=== PATIENT | male | born 1945 | race Caucasian/White ===

== ENCOUNTER 2018-01-21 07:34 | Day surgery (SDC) | payer MEDICARE, OTHER ==
--- NOTE | 2018-01-19 14:32 | RAD REPORT ---
EXAM DESCRIPTION: RAD - Chest Pa And Lat (2 Views) - 01/19/2018 2:14 pm CLINICAL HISTORY: Preop chest, pending vascular surgical procedure, history of fibrosis COMPARISON: Portable exam August 2015, two view examination March 2010 TECHNIQUE: PA and lateral views of the chest were obtained. FINDINGS: The lungs are normal volume. Patient has significant old left-sided rib trauma with tentin g of the left hemidiaphragm. The chronic pleural and parenchymal scarring changes along the lateral i nferior left lung field are stable. Left upper lung field focal density is calcification along the an terior left first rib. Prominence of the right side interstitial markings has not changed. No acute failure, infiltrate or m ass. Trachea is midline. Heart size is normal and central vasculature is within normal limits. No p leural effusion or pneumothorax seen. No acute bony finding noted. No aortic abnormality. IMPRESSION: No acute cardiopulmonary process. Chronic parenchymal and pleural changes and old rib trauma on the left are stable from comparison shraddha ging.
[2018-01-19 14:50] LABS: Absolute Lymphocytes (CBC) 0.8 K/uL (0.7-4.9); Absolute Monocytes 0.7 K/uL (0.1-1.3); Absolute Neutrophil 5.1 K/uL (1.8-8.0); Basophils % 0.2 % (0-1.3); Hematocrit 39.1 % (39.6-49.0); MCH 31.9 pg (27.0-35.0); MCV 95.9 fL (80-100); MPV 9.4 fL (7.6-11.3); Monocytes % 10.6 % (3.3-12.3); RBC Red Blood Cell Count 4.08 M/uL (4.33-5.43)
[2018-01-19 15:00] LABS: Protime INR 1.28
[2018-01-19 15:17] LABS: Potassium 4.3 mmol/L (3.5-5.1)
--- NOTE | 2018-01-19 17:57 | EKG ---
Test Date: 2018-01-19 Test Time: 13:50:05 [employer]: LINETTE MEASUREMENT RESULTS: Intervals: Rate: 89 OR: QRSD: 90 QT: 398 QTc: 484 [place]: P: OR: QRS: 10 T: 24 INTERPRETIVE STATEMENTS: Atrial fibrillation Prolonged QT Abnormal ECG Compared to ECG 08/28/2015 06:00:03 Prolonged QT interval now present Sinus rhythm no longer present Electronically Signed On 01-19-18 17:56:39 CDT by Pieter Carney
[2018-01-21] MEDS ORDERED: NA CHLORIDE 0.9% 500 ML ONE (07:43)
[2018-01-21] MEDS ORDERED: LIDOCAINE 1% MPF 2 ML AMPULE ONE (08:27)
[2018-01-21] MEDS ORDERED: HEPA 1000U/500MLS 2,000 UNIT/1,000 ML BAG IV ONE (08:27)
[2018-01-21] MEDS ORDERED: FENTANYL CITR 100 MCG/2 ML ONE (08:28)
[2018-01-21] MEDS ORDERED: MIDAZOLAM HCL 2 MG/2 ML INJ ONE (08:28)
--- NOTE | 2018-01-21 11:31 | OP ---
Date of Procedure: 01/21/2018 Surgeon: Pieter Carney MD Indications: Mr. Fernandez is a 72-year-old with documented peripheral arterial disease, abnormal yvonne rial Doppler, admitted as an outpatient for abdominal angiogram with runoff. Description Of Procedure: He was prepped and draped in the routine sterile fashion given 2 mg of Yordy sed for IV sedation. We attempted to do a complete angiogram from of the aorta with runoff. The pat ient had a right common femoral artery was cannulated with a 6-Czech sheath successfully. 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 A sheath was used, 6-Czech in th e left groin and that showed the same thing with complete occlusion of left common femoral artery by angiography. The patient tolerated the procedure well. There were no complication. Blood loss was 10 cc. Total conscious sedation was 30 minutes. Additional Surgeon: Lizy Tong. Final Diagnosis: Severe peripheral arterial disease. The patient will probably end up having an abdominal angiogram with runoff using an MRA or a wrist ap proach. I will evaluate his coronary anatomy first. He is on Xarelto and I told him to resume this starting tomorrow. I will make arrangements for the MRA of his abdominal aorta distally and lower ex tremity distally and then Lexiscan and then decide on further treatment therapy afterwards. JESSA/DAVID Voice ID: [id number] Report ID: [id number]
[2018-01-21 14:55] VITALS: O2SAT 97
[2018-01-21 15:42] VITALS: BP 168/79; TEMP 97.1
== END 2018-01-21 16:00 | disposition home or self-care (01) ==
LOC: CCL 07:34
PROC: B41GYZZ Fluoroscopy of Left Lower Extremity Arteries using Other Contrast (ICD-10-PCS; principal; 2018-01-21)
PROC: B41FYZZ Fluoroscopy of Right Lower Extremity Arteries using Other Contrast (ICD-10-PCS; 2018-01-21)
DX: I70.213 Atherosclerosis of native arteries of extremities with intermittent claudication, bilateral legs (principal); I48.0 Paroxysmal atrial fibrillation; E78.6 Lipoprotein deficiency; I10 Essential (primary) hypertension; R60.9 Edema, unspecified; G62.9 Polyneuropathy, unspecified; R01.1 Cardiac murmur, unspecified; I70.92 Chronic total occlusion of artery of the extremities
CPT/HCPCS: 36140; 36415; 71046; 80048; 82962 ×3; 85025; 85610; 85730; 93005; C1893; J2001; J2250; J3010

== ENCOUNTER 2019-07-26 11:57 | Inpatient (IN) | payer MEDICARE ==
[2019-07-26] MEDS ORDERED: NA CHLORIDE 0.9% 1,000 ML ONE (12:22)
--- NOTE | 2019-07-26 12:37 | RAD REPORT ---
EXAM DESCRIPTION: RAD - Chest Single View - 07/26/2019 12:29 pm CLINICAL HISTORY: COUGH Chest pain. COMPARISON: Chest Pa And Lat (2 Views) dated 01/19/2018; CHEST SINGLE VIEW dated 08/28/2015; CHEST SING LE VIEW dated 07/12/2014; CHEST PA AND LAT 2 VIEW dated 04/07/2014 FINDINGS: Portable technique limits examination quality. Mild bilateral pulmonary opacities are present likely representing pulmonary edema or pneumonia. The heart is mildly enlarged in size. No displaced fractures.
--- NOTE | 2019-07-26 13:51 | RAD REPORT ---
EXAM DESCRIPTION: CT - Head Brain Wo Cont - 07/26/2019 1:44 pm CLINICAL HISTORY: Dizziness;Weakness Headache, drowsiness COMPARISON: No comparisons TECHNIQUE: All CT scans are performed using dose optimization technique as appropriate and may inclu de automated exposure control or mA/KV adjustment according to patient size. FINDINGS: No intracranial hemorrhage, hydrocephalus or extra-axial fluid collection.Moderate general ized brain atrophy.No areas of brain edema or evidence of midline shift. Moderate mucus is seen in the posterior left ethmoid air cells. The paranasal sinuses and mastoids ar e otherwise clear. The calvarium is intact. Vertebral arteries are calcified. IMPRESSION: No acute intracranial abnormality. Moderate brain atrophy.
[2019-07-26 14:08] LABS: Urine Blood 1+ (NEG); Urine Glucose NEGATIVE (NEG); Urine Protein NEGATIVE (NEG); Urine Specific Gravity 1.015 (1.005-1.030); Urine pH 6.5 (5.0-7.0)
[2019-07-26 14:13] LABS: Absolute Lymphocytes (CBC) 0.6 K/uL (0.7-4.9); Basophils % 0.5 % (0-1.3); Hematocrit 35.2 % (39.6-49.0); Lymphocytes % 5.6 % (15.3-44.8); MPV 9.2 fL (7.6-11.3)
[2019-07-26] MEDS ORDERED: METOPROLOL TAR 50 MG TAB ONE (14:18)
[2019-07-26] MEDS ORDERED: IPRATROPIUM BROM 0.5MG/2.5ML ONE (14:18)
[2019-07-26] MEDS ORDERED: LEVALBUTEROL 1.25 MG/3 ML NEB ONE (14:19)
[2019-07-26] MEDS ORDERED: METOPROLOL TARTRATE 5 MG/5 ML INJ IV ONE (14:19)
[2019-07-26] MEDS ORDERED: PIPER/TAZO/NS 3.375gm 3.375 GM/100 ML BAG ONE (14:19)
[2019-07-26 14:21] LABS: Protime INR 1.25
[2019-07-26 14:44] LABS: ALT/SGPT 67 U/L (12-78); AST/SGOT 96 U/L (15-37); Albumin 2.3 g/dL (3.4-5.0); Alkaline Phosphatase 186 U/L (45-117); BUN Blood Urea Nitrogen 18 mg/dL (7-18); Bicarbonate 29 mmol/L (21-32); Bilirubin Direct 0.3 mg/dL (0-0.2); Bilirubin Total 0.8 mg/dL (0.2-1.0); Glucose Level 180 mg/dL (74-106); Lipase 62 U/L (73-393); Magnesium 2.2 mg/dL (1.8-2.4); NT PRO-BNP 1699 pg/mL (<450); Potassium 3.7 mmol/L (3.5-5.1); Protein, Total 7.9 g/dL (6.4-8.2); Sodium Level 136 mmol/L (136-145); Troponin (Emerg Dept Use Only) < 0.02 ng/mL (0.0-0.045)
[2019-07-26] MEDS ORDERED: FUROSEMIDE 40 MG/4 ML VIAL ONE (15:02)
--- NOTE | 2019-07-26 15:03 | EDPHYS ---
Physician Documentation [facility] Name: Angus Patrick Age: 73 yrs Sex: Male : 1945 Arrival Date: 07/26/2019 Time: 11:58 Bed 18 Private MD: ED Physician Elver Morrell HPI: 07/26 13:30 This 73 yrs old Male presents to ER via EMS with complaints of General marin Weakness. 13:30 The patient has shortness of breath at rest, with light activity. marin 13:32 Onset: The symptoms/episode began/occurred 4 day(s) ago. Duration: The symptoms are marin continuous, and are steadily getting worse. The patient's shortness of breath has no apparent modifying factors. The patient or guardian reports cough, difficulty breathing, flu symptoms, low-grade fever. Modifying factors: The symptoms are alleviated by nothing. the symptoms are aggravated by nothing. weak, pain all over. Associated signs and symptoms: The patient has no apparent associated signs or symptoms. Severity of symptoms: At their worst the symptoms were moderate in the emergency department the symptoms are unchanged. Historical: - Allergies: 12:13 Morphine; sv - Home Meds: 15:15 oxybutynin chloride 15 mg Oral tr24 1 tab once daily [Active]; simvastatin 40 mg Oral iw tab 1 tab once daily [Active]; methenamine hippurate 1 gram oral tab 1 tab 2 times per day [Active]; Xarelto 15 mg oral tab daily [Active]; carvedilol 6.25 mg oral tab 1 tab 2 times per day [Active]; furosemide 40 mg Oral tab 1 tab once daily [Active]; hydrocodone-acetaminophen 10-325 mg Oral tab 1 tab every 6 hours [Active]; alprazolam 0.25 mg Oral tab twice a day [Active]; - PMHx: 15:17 UTI; colon cancer; iw 15:18 Hypertension; Hyperlipidemia; iw 19:18 Atrial Fib; sv - PSHx: 12:13 Colostomy; sv - Immunization history:: Adult Immunizations up to date. - Coronavirus screen:: The patient has NOT traveled to [place], [place], or [place] in the past 14 days. Proceed with normal triage process as indicated. - Family history:: not pertinent. - Social history:: Smoking status: Patient denies any tobacco usage or history of. - Ebola Screening: : Patient negative for fever greater than or equal to 101.5 degrees Fahrenheit, and additional compatible Ebola Virus Disease symptoms Patient denies exposure to infectious person Patient denies travel to an Ebola-affected area in the 21 days before illness onset No symptoms or risks identified at this time. ROS: 13:34 Constitutional: Negative for fever, chills, and weight loss, Eyes: Negative for injury, marin pain, redness, and discharge, ENT: Negative for injury, pain, and discharge, Neck: Negative for injury, pain, and swelling, Abdomen/GI: Negative for abdominal pain, nausea, vomiting, diarrhea, and constipation, Back: Negative for injury and pain, : Negative for injury, bleeding, discharge, and swelling, Skin: Negative for injury, rash, and discoloration, Neuro: Negative for headache, weakness, numbness, tingling, and seizure, Psych: Negative for depression, anxiety, suicide ideation, homicidal ideation, and hallucinations, Allergy/Immunology: Negative for hives, rash, and allergies, Endocrine: Negative for neck swelling, polydipsia, polyuria, polyphagia, and marked weight changes, Hematologic/Lymphatic: Negative for swollen nodes, abnormal bleeding, and unusual bruising. 13:34 Cardiovascular: Positive for chest pain, palpitations. 13:34 Respiratory: Positive for cough, dyspnea on exertion, shortness of breath, wheezing, expiratory. 13:34 MS/extremity: Positive for swelling, of the right leg and left leg. Exam: 13:34 Constitutional: This is a well developed, well nourished patient who is awake, alert, marin and in no acute distress. Head/Face: Normocephalic, atraumatic. Eyes: Pupils equal round and reactive to light, extra-ocular motions intact. Lids and lashes normal. Conjunctiva and sclera are non-icteric and not injected. Cornea within normal limits. Periorbital areas with no swelling, redness, or edema. ENT: Nares patent. No nasal discharge, no septal abnormalities noted. Tympanic membranes are normal and external auditory canals are clear. Oropharynx with no redness, swelling, or masses, exudates, or evidence of obstruction, uvula midline. Mucous membranes moist. Neck: Trachea midline, no thyromegaly or masses palpated, and no cervical lymphadenopathy. Supple, full range of motion without nuchal rigidity, or vertebral point tenderness. No Meningismus. Chest/axilla: Normal chest wall appearance and motion. Nontender with no deformity. No lesions are appreciated. Abdomen/GI: Soft, non-tender, with normal bowel sounds. No distension or tympany. No guarding or rebound. No evidence of tenderness throughout. Back: No spinal tenderness. No costovertebral tenderness. Full range of motion. Male : Normal genitalia with no discharge or lesions. Skin: Warm, dry with normal turgor. Normal color with no rashes, no lesions, and no evidence of cellulitis. Neuro: Awake and alert, GCS 15, oriented to person, place, time, and situation. Cranial nerves II-XII grossly intact. Motor strength 5/5 in all extremities. Sensory grossly intact. Cerebellar exam normal. Normal gait. Psych: Awake, alert, with orientation to person, place and time. Behavior, mood, and affect are within normal limits. 13:34 Cardiovascular: Rate: tachycardic, Rhythm: irregularly irregular, Pulses: Pulses are 4+ in bilateral radial, brachial, femoral, popliteal, posterior tibial and and dorsalis pedis arteries.. Heart sounds: normal, Edema: 3+ edema to level of left midcalf and right midcalf, JVD: is not appreciated. 13:34 Respiratory: the patient does not display signs of respiratory distress, Respirations: normal, Breath sounds: decreased breath sounds, rhonchi, are not appreciated, stridor, is not appreciated. Vital Signs: 12:12 BP 182 / 102; Pulse 125; Resp 15; Pulse Ox 98% on R/A; sv 12:30 BP 162 / 82; Pulse 120; Resp 17; Temp 97.7(O); Pulse Ox 97% ; sv 15:05 BP 96 / 40; Pulse 93; Resp 14; Pulse Ox 99% ; sv 15:30 BP 116 / 71; Pulse 93; Resp 14; Pulse Ox 99% ; sv 16:31 BP 132 / 75; Pulse 87; Resp 20; Pulse Ox 98% on R/A; sv MDM: 12:05 Patient medically screened. [facility] 13:36 Data reviewed: vital signs, nurses notes, lab test result(s), EKG, radiologic studies, [facility] CT scan, plain films. 07/26 12:07 Order name: Basic Metabolic Panel; Complete Time: 14:58 [facility] 07/26 12:07 Order name: CBC with Diff; Complete Time: 14:58 [facility] 07/26 12:07 Order name: LFT's; Complete Time: 14:58 [facility] 07/26 12:07 Order name: Magnesium; Complete Time: 14:58 [facility] 07/26 12:07 Order name: NT PRO-BNP; Complete Time: 14:58 [facility] 07/26 12:07 Order name: PT-INR; Complete Time: 14:58 [facility] 07/26 12:07 Order name: Troponin (emerg Dept Use Only); Complete Time: 14:58 [facility] 07/26 12:07 Order name: XRAY Chest (1 view); Complete Time: 14:58 [facility] 07/26 12:07 Order name: Lipase; Complete Time: 14:58 [facility] 07/26 12:07 Order name: Blood Culture Adult (2) 07/26 12:07 Order name: Flu; Complete Time: 14:58 [facility] 07/26 12:07 Order name: Urine Culture 07/26 13:20 Order name: Urine Dipstick--Ancillary (enter results); Complete Time: 14:58 07/26 13:25 Order name: TSH 07/26 12:07 Order name: EKG; Complete Time: 12:08 [facility] 07/26 12:07 Order name: Cardiac monitoring; Complete Time: 13:29 [facility] 07/26 12:07 Order name: IV Saline Lock; Complete Time: 13:29 [facility] 07/26 13:25 Order name: CT Head Brain wo Cont; Complete Time: 14:58 [facility] 07/26 12:07 Order name: Labs collected and sent; Complete Time: 13:29 [facility] 07/26 12:07 Order name: O2 Per Protocol; Complete Time: 13:29 [facility] 07/26 12:07 Order name: O2 Sat Monitoring; Complete Time: 13:29 [facility] 07/26 12:07 Order name: Urine Dipstick-Ancillary (obtain specimen); Complete Time: 13:28 [facility] 07/26 13:44 Order name: Labs - recollect needed: recollect everything; Complete Time: 14:07 07/26 15:34 Order name: Randhawa; Complete Time: 16:49 [facility] Administered Medications: 13:20 Drug: NS 0.9% 1000 ml Route: IV; Rate: 1 bolus; Site: left antecubital; sv 14:30 Follow up: Response: No adverse reaction; IV Status: Completed infusion; IV Intake: sv 1000ml 13:31 CANCELLED (Duplicate Order): Rocephin 1 grams IV at per protocol once; Given slow IV marin push per pharmacy instructions 15:14 Not Given (Duplicate Order): Lasix 40 mg IVP once marin 15:15 Not Given (Duplicate Order): Lopressor 2.5 mg IVP once; Hold for SBP <100 or HR <60. marin 15:15 Not Given (Duplicate Order): Lopressor 2.5 mg IVP once; Hold for SBP <100 or HR <60. marin 15:16 Not Given (Duplicate Order): Lopressor (metoprolol TARTRATE) 50 mg PO once marin 15:24 Drug: Zosyn 3.375 grams Route: IVPB; Infused Over: 60 mins; Site: right antecubital; sv 16:30 Follow up: Response: No adverse reaction; IV Status: Completed infusion; IV Intake: sv 100ml 15:24 Drug: AtroVENT Aerosol 0.5 mg Route: Inhalation; sv 15:24 Drug: Digoxin 0.5 mg Route: IVP; Site: right antecubital; sv 16:00 Follow up: Response: No adverse reaction sv 15:25 Drug: Xopenex 1.25 mg Route: Inhalation; sv 17:50 Not Given (Physician Discretion): Coreg 6.25 mg PO once; administer with food sv Disposition: 07/26/19 15:02 Hospitalization ordered by Casey Uribe for Inpatient Admission. Preliminary diagnosis are Malaise and fatigue, Dyspnea, Atrial fibrillation and flutter - with rvr, Pneumonia due to other specified bacteria, Unspecified combined systolic (congestive) and diastolic (congestive) heart failure, Obesity, unspecified, Retention of urine. - Bed requested for Telemetry/MedSurg (Inpatient). - Status is Inpatient Admission. sv - Condition is Fair. - Problem is new. - Symptoms have improved. UTI on Admission? No Signatures: Dispatcher [employer] EDMS Yamileth Araya Stephanie, RN RN sv Anderson, Corey, MD MD cha Williams, Irene, RN RN iw Corrections: (The following items were deleted from the chart) 13:31 13:26 Rocephin 1 grams IV at per protocol once; Given slow IV push per pharmacy marin instructions ordered. [facility] 15:34 15:02 Hospitalization Ordered by Casey Uribe DO for Inpatient Admission. Preliminary marin diagnosis is Malaise and fatigue; Dyspnea; Atrial fibrillation and flutter - with rvr; Pneumonia due to other specified bacteria; Unspecified combined systolic (congestive) and diastolic (congestive) heart failure; Obesity, unspecified. Bed requested for Telemetry/MedSurg (Inpatient). Status is Inpatient Admission. Condition is Fair. Problem is new. Symptoms have improved. UTI on Admission? No. marin 16:26 15:34 07/26/2019 15:02 Hospitalization Ordered by Casey Uribe DO for Inpatient bd Admission. Preliminary diagnosis is Malaise and fatigue; Dyspnea; Atrial fibrillation and flutter - with rvr; Pneumonia due to other specified bacteria; Unspecified combined systolic (congestive) and diastolic (congestive) heart failure; Obesity, unspecified; Retention of urine. Bed requested for Telemetry/MedSurg (Inpatient). Status is Inpatient Admission. Condition is Fair. Problem is new. Symptoms have improved. UTI on Admission? No. marin 17:51 16:26 07/26/2019 15:02 Hospitalization Ordered by Casey Uribe DO for Inpatient sv Admission. Preliminary diagnosis is Malaise and fatigue; Dyspnea; Atrial fibrillation and flutter - with rvr; Pneumonia due to other specified bacteria; Unspecified combined systolic (congestive) and diastolic (congestive) heart failure; Obesity, unspecified; Retention of urine. Bed requested for Telemetry/MedSurg (Inpatient). Status is Inpatient Admission. Condition is Fair. Problem is new. Symptoms have improved. UTI on Admission? No. bd
--- NOTE | 2019-07-26 15:03 | ER ---
Nurse's Notes [facility] Name: Angus Patrick Age: 73 yrs Sex: Male : 1945 Arrival Date: 07/26/2019 Time: 11:58 Bed 18 Private MD: Diagnosis: Malaise and fatigue;Dyspnea;Atrial fibrillation and flutter-with rvr;Pneumonia due to other specified bacteria;Unspecified combined systolic (congestive) and diastolic (congestive) heart failure;Obesity, unspecified;Retention of urine Presentation: 07/26 11:51 Presenting complaint: EMS states: generalized weakness has been going on for about 4 sv days, today he was unable to get out of his wheelchair. On EMS arrival pt was noted to be sitting in his wheelchair. EKG-Afib (unknown hx). Transition of care: patient was not received from another setting of care. Onset of symptoms was July 22, 2019. 11:51 Method Of Arrival: EMS: [facility] sv 11:55 Risk Assessment: Do you want to hurt yourself or someone else? Patient reports no sv desire to harm self or others. Initial Sepsis Screen: Does the patient meet any 2 criteria? HR > 90 bpm. No. Patient's initial sepsis screen is negative. Does the patient have a suspected source of infection? No. Patient's initial sepsis screen is negative. Care prior to arrival: None. 12:12 Acuity: BARB 2 sv Triage Assessment: 11:55 General: Appears in no apparent distress. uncomfortable, well developed, Behavior is sv calm, cooperative, appropriate for age. Pain: Complains of pain in "everywhere" Pain currently is 10 out of 10 on a pain scale. Is chronic. Neuro: Level of Consciousness is awake, alert, obeys commands, Oriented to person, place, time, situation, Moves all extremities. Neuro: Reports weakness. Cardiovascular: Patient's skin is warm and dry. Pulses are palpable in right radial artery and left radial artery. Respiratory: Airway is patent Respiratory effort is even, unlabored, Respiratory pattern is regular, symmetrical. Derm: Skin is fragile, is thin, with poor turgor Skin is dry, scaly Skin is pale. Musculoskeletal: Range of motion: intact in all extremities, Swelling present in right leg and left leg. Historical: - Allergies: 12:13 Morphine; sv - Home Meds: 15:15 oxybutynin chloride 15 mg Oral tr24 1 tab once daily [Active]; simvastatin 40 mg Oral iw tab 1 tab once daily [Active]; methenamine hippurate 1 gram oral tab 1 tab 2 times per day [Active]; Xarelto 15 mg oral tab daily [Active]; carvedilol 6.25 mg oral tab 1 tab 2 times per day [Active]; furosemide 40 mg Oral tab 1 tab once daily [Active]; hydrocodone-acetaminophen 10-325 mg Oral tab 1 tab every 6 hours [Active]; alprazolam 0.25 mg Oral tab twice a day [Active]; - PMHx: 15:17 UTI; colon cancer; iw 15:18 Hypertension; Hyperlipidemia; iw 19:18 Atrial Fib; sv - PSHx: 12:13 Colostomy; sv - Immunization history:: Adult Immunizations up to date. - Coronavirus screen:: The patient has NOT traveled to [place], [place], or [place] in the past 14 days. Proceed with normal triage process as indicated. - Family history:: not pertinent. - Social history:: Smoking status: Patient denies any tobacco usage or history of. - Ebola Screening: : Patient negative for fever greater than or equal to 101.5 degrees Fahrenheit, and additional compatible Ebola Virus Disease symptoms Patient denies exposure to infectious person Patient denies travel to an Ebola-affected area in the 21 days before illness onset No symptoms or risks identified at this time. Screenin:30 Abuse screen: Denies threats or abuse. Denies injuries from another. Nutritional sv screening: No deficits noted. Tuberculosis screening: No symptoms or risk factors identified. Fall Risk No fall in past 12 months (0 pts). No secondary diagnosis (0 pts). IV access (20 points). Ambulatory Aid- None/Bed Rest/Nurse Assist (0 pts). Gait- Weak (10 pts.). Mental Status- Overestimates/Forgets Limitations (15 pts.). Total [place] Fall Scale indicates High Risk Score (45 or more points). Fall prevention measures have been instituted. Side Rails Up X 2 Placed Close to Nursing Station Frequent Obs/Assessments Occuring As available patient and family educated on Fall Prevention Program and Strategies. Assessment: 12:30 Cardiovascular: Rhythm is atrial fibrillation. Derm: Decubitus located on sacrum sv posterior right calf approximately pt has multiple decubitus, 3 large ones and multiple small ones is unstageable. is draining small amount purulent. 12:30 Reassessment: Patient appears in no apparent distress at this time. Patient and/or sv family updated on plan of care and expected duration. Pain level reassessed. Patient is alert, oriented x 3, equal unlabored respirations, skin warm/dry/pink. 14:00 Reassessment: Patient appears in no apparent distress at this time. Patient and/or sv family updated on plan of care and expected duration. Pain level reassessed. Patient is alert, oriented x 3, equal unlabored respirations, skin warm/dry/pink. 15:24 Reassessment: Patient appears in no apparent distress at this time. Patient and/or sv family updated on plan of care and expected duration. Pain level reassessed. Patient is alert, oriented x 3, equal unlabored respirations, skin warm/dry/pink. 15:41 Reassessment: Dr rUibe at the bedside. sv 17:00 Reassessment: Patient appears in no apparent distress at this time. Patient and/or sv family updated on plan of care and expected duration. Pain level reassessed. Patient is alert, oriented x 3, equal unlabored respirations, skin warm/dry/pink. Vital Signs: 12:12 BP 182 / 102; Pulse 125; Resp 15; Pulse Ox 98% on R/A; sv 12:30 BP 162 / 82; Pulse 120; Resp 17; Temp 97.7(O); Pulse Ox 97% ; sv 15:05 BP 96 / 40; Pulse 93; Resp 14; Pulse Ox 99% ; sv 15:30 BP 116 / 71; Pulse 93; Resp 14; Pulse Ox 99% ; sv 16:31 BP 132 / 75; Pulse 87; Resp 20; Pulse Ox 98% on R/A; sv ED Course: 11:51 Maintain EMS IV. Dressing intact. Site clean \\T\\ dry. Gauge \\T\\ site: 20G L Ac. sv 11:58 Patient arrived in ED. sv 11:59 Isabella Patricio, RN is Primary Nurse. sv 12:00 Patient has correct armband on for positive identification. Placed in gown. Bed in low sv position. Call light in reach. Side rails up X2. mental health advanced practice nurse on. Pulse ox on. NIBP on. Door closed. Head of bed elevated. 12:05 Elver Morrell MD is Attending Physician. marin 12:06 EKG done, by dental service technician. reviewed by Elver Morrell MD. at1 12:13 Triage completed. sv 12:29 XRAY Chest (1 view) In Process Unspecified. EDMS 12:30 Arm band placed on. sv 12:45 Missed attempt(s): 22 gauge in right hand. Bleeding controlled, band aid applied, sv catheter tip intact. 12:50 First set of blood cultures drawn by me. Inserted saline lock: 20 gauge in right sv antecubital area, using aseptic technique. Blood collected. Flushed right antecubital with 5 ml normal saline. 13:[address] via stretcher. sv 13:43 CT Head Brain wo Cont In Process Unspecified. EDMS 14:07 Lab(s) recollected, by analyst microbiology lab, sent to lab. sv 15:01 Casey Uribe DO is Hospitalizing Provider. marin 17:01 No provider procedures requiring assistance completed. Patient admitted, IV remains in sv place. intact. Administered Medications: 13:20 Drug: NS 0.9% 1000 ml Route: IV; Rate: 1 bolus; Site: left antecubital; sv 14:30 Follow up: Response: No adverse reaction; IV Status: Completed infusion; IV Intake: sv 1000ml 13:31 CANCELLED (Duplicate Order): Rocephin 1 grams IV at per protocol once; Given slow IV marin push per pharmacy instructions 15:14 Not Given (Duplicate Order): Lasix 40 mg IVP once marin 15:15 Not Given (Duplicate Order): Lopressor 2.5 mg IVP once; Hold for SBP <100 or HR <60. marin 15:15 Not Given (Duplicate Order): Lopressor 2.5 mg IVP once; Hold for SBP <100 or HR <60. marin 15:16 Not Given (Duplicate Order): Lopressor (metoprolol TARTRATE) 50 mg PO once marin 15:24 Drug: Zosyn 3.375 grams Route: IVPB; Infused Over: 60 mins; Site: right antecubital; sv 16:30 Follow up: Response: No adverse reaction; IV Status: Completed infusion; IV Intake: sv 100ml 15:24 Drug: AtroVENT Aerosol 0.5 mg Route: Inhalation; sv 15:24 Drug: Digoxin 0.5 mg Route: IVP; Site: right antecubital; sv 16:00 Follow up: Response: No adverse reaction sv 15:25 Drug: Xopenex 1.25 mg Route: Inhalation; sv 17:50 Not Given (Physician Discretion): Coreg 6.25 mg PO once; administer with food sv Intake: 14:30 IV: 1000ml; Total: 1000ml. sv 16:30 IV: 100ml; Total: 1100ml. sv Output: 12:55 Urine: 1800ml (Randhawa); Total: 1800ml. sv 16:50 Urine: 450ml (Randhawa); Total: 2250ml. sv Outcome: 15:02 Decision to Hospitalize by Provider. marin 17:01 Admitted to Tele accompanied by tech, via stretcher, room 403, with chart, Report sv called to Gabriela CHAVEZ 17:01 Condition: stable 17:01 Instructed on the need for admit. 17:51 Patient left the ED. sv Signatures: Dispatcher [employer] Isabella Chamorro RN RN sv Anderson, Corey, MD MD cha Williams, Irene, RN RN iw Gonzales, Amanda, dental manager EKG Tat1 Corrections: (The following items were deleted from the chart) 19:17 12:30 BP 162 / 82; Pulse 120bpm; Resp 17bpm; Pulse Ox 97%; sv sv
[2019-07-26] MEDS ORDERED: DIGOXIN 0.25 MG/ML AMP ONE (15:21)
--- NOTE | 2019-07-26 15:53 | EKG ---
Test Date: 2019-07-26 Test Time: 12:02:26 Biologics Specialist: AFTAB MEASUREMENT RESULTS: Intervals: Rate: 127 AR: QRSD: 94 QT: 366 QTc: 531 [place]: P: AR: QRS: 49 T: 86 INTERPRETIVE STATEMENTS: Atrial fibrillation with rapid ventricular response Nonspecific ST and T wave abnormality, probably digitalis effect Abnormal ECG Compared to ECG 01/19/2018 13:50:05 ST (T wave) deviation now present Prolonged QT interval no longer present Electronically Signed On 07-26-19 15:51:28 ENERGY CONSULTANT by Pieter Carney
--- NOTE | 2019-07-26 16:55 | P.HP ---
Certification for Inpatient Patient admitted to: Inpatient With expected LOS: >2 Midnights Patient will require the following post-hospital care: Senior Care Practitioner: I am a practitioner with admitting privileges, knowledge of patient current condition, hospital course, and medical plan of care. Services: Services provided to patient in accordance with Admission requirements found in Title 42 Section 412.3 of the Code of Federal Regulations Patient History Date of Service: 07/26/19 Primary Care Provider: Dr. Solorio; Cardiology-Dr. Carney Reason for admission: Generalized weakness History of Present Illness: 73-year-old male with history of atrial fibrillation on chronic anti coagulation therapy, PVD, history of colon cancer now with colostomy. Patient was brought in by EMS. Most information came from the nurses and . Patient is a poor historian. has reported decreased weakness over the past several days. It is been difficult for her to have him move around. Patient primarily uses a wheelchair at home. Patient denied any significant chest pain, shortness of breath. Some edema to the lower extremity noted. Patient presented to the ER for further evaluation. Patient was found to have AFib with RVR with a rate around 120. Patient appeared disheveled. In the ER he was found to have multiple unstageable sacral decubitus ulcers. He also had poor skin care to the lower extremities. On lab white count 10.6, hemoglobin 11.6. Sodium 136, potassium 3.7, BUN of 15 , creatinine 1.23 with a GFR 57. Glucose 180. Chest x-ray showed mild pulmonary edema. CT head unremarkable. Troponin unremarkable. BNP 1699. Patient was admitted for further evaluation. When I saw the patient ER, was at bedside. Patient is a poor historian. Patient appears disheveled and not well kept. Patient with urinary incontinence and urinary retention. Patient self caths. Randhawa catheter was placed in the emergency room. reports that he has been getting home health and physical therapy. This is not been helpful. reports that she is not able to take care of him in his condition. Allergies morphine Adverse Reaction (Verified 01/19/18 13:36) severe constipation Home medications list reviewed: Yes Home Medications: Simvastatin [Zocor*] 40 mg PO BEDTIME 07/12/14 Hydrocodone Bit/Acetaminophen [Hydrocodon-Acetaminophn 10-325] 10 mg PO PRN PRN 11/29/14 Lisinopril [Zestril] 2.5 mg PO DAILY 11/29/14 Methenamine Hippurate [Hiprex] 1 gm PO DAILY 11/29/14 Oxybutynin Chloride [Oxybutynin Chloride ER] 15 mg PO DAILY 11/29/14 - Past Medical/Surgical History Diabetic: No -: Hyperlipidemia -: HTN -: Colon cancer with colostomy -: Peripheral vascular disease -: History of urinary retention, patient self caths -: Chronic lymphedema -: Colostomy Psychosocial/ Personal History: Patient lives with . He has been getting home health. - Family History Family History: Reviewed- Non-Contributory - Social History Smoking Status: Unknown if ever smoked Alcohol use: No CD- Drugs: No Caffeine use: Yes Place of Residence: Home Review of Systems General: Weakness, As per HPI Eyes: Unremarkable ENT: Unremarkable Respiratory: Unremarkable Cardiovascular: Unremarkable Gastrointestinal: Unremarkable Genitourinary: Unremarkable Musculoskeletal: Pedal edema, As per HPI Integumentary: As per HPI Neurological: Weakness, As per HPI Lymphatics: Unremarkable Physical Examination - Physical Exam General: Alert, In no apparent distress, Oriented x3, Cooperative, Disheveled, Other (Patient does not appear well kept) HEENT: Atraumatic, Mucous membr. moist/pink Neck: Supple Respiratory: Clear to auscultation bilaterally, Normal air movement Cardiovascular: Irregular heart rate/rhythm (AFib rate controlled) Gastrointestinal: Normal bowel sounds, Soft and benign, Non-distended, No tenderness, No masses, No rebound, No guarding, Other (Ostomy bag in place) Musculoskeletal: No tenderness, No warmth Integumentary: Other (Chronic lymphedema to the lower extremities. Poor skin care noted to the feet. Nurses report multiple sacral decubitus ulcers) Neurological: Normal speech, Normal strength at 5/5 x4 extr, Normal tone, Normal affect, Other (Generalized weakness) Urinary: Randhawa catheter - Studies Laboratory Data (last 24 hrs) 07/26/19 14:02: Sodium 136, Potassium 3.7, BUN 18, Creatinine 1.23, Glucose 180 H, Magnesium 2.2, Total Bilirubin 0.8, AST 96 H, ALT 67, Alkaline Phosphatase 186 H, Lipase 62 L 07/26/19 14:00: PT 14.6 H, INR 1.25 07/26/19 14:00: WBC 10.6, Hgb 11.6 L, Hct 35.2 L, Plt Count 243 Microbiology Data (last 24 hrs): 07/26/19 13:00 Nasopharnyx Influenza Type A Antigen Screen - Final 07/26/19 13:00 Nasopharnyx Influenza Type B Antigen Screen - Final Assessment and Plan - Plan Impression: Weakness likely secondary to AFib with RVR on chronic anti coagulation therapy Acute on chronic diastolic CHF Hypertension Hyperlipidemia Peripheral vascular disease Multiple sacral decubitus ulcers with ulcer to the lower extremities History of colon cancer now with colostomy Plan: Weakness likely secondary to AFib with RVR on chronic anti coagulation therapy: Patient we admitted for further evaluation and treatment. Will continue to monitor telemetry and cardiac enzymes. Will order echocardiogram to further evaluate. Will consult cardiology for further recommendation. Will continue with anti coagulation therapy-Xarelto. Will need to obtain home medication to see if patient is taking rate control medication. Rate appears stable at this time. Patient appears disheveled and not well kept. Will have wound care address his multiple wounds. Will need of physical therapy and occupational therapy assess ambulation. Patient will require skilled placement at discharge. Will consult social insurance adviser. Advanced directives address with . Patient is do not resuscitate. Anticipate discharge to skilled placement likely in the next 3-5 days. I will turn the service over to the hospitalist team tomorrow. I will go over the plan of care with him. Acute on chronic diastolic CHF: This appears stable at this time. Will maintain oxygen above 93%. Will continue with Lasix. Will continue with a 1500 cc per day fluid restriction. Will monitor weight daily. Hypertension: Will obtain home medications and verify. Hyperlipidemia: Will check fasting lipid panel. Will continue home medication. Peripheral vascular disease: This has been evaluated in the past. As mentioned by she has not been about a follow up with cardiology. Cardiology consulted to further evaluate. Patient currently on Xarelto. Multiple sacral decubitus ulcers with ulcer to the lower extremities: Will have wound care evaluate multiple wounds. Patient will require evaluation and treatment. History of colon cancer now with colostomy: Will continue with colostomy care. Discharge Plan: Other (Skilled placement facility) Plan to discharge in: Greater than 2 days - Advance Directives Does patient have a Living Will: No Does patient have a Durable POA for Healthcare: No - Code Status/Comfort Care Code Status Assessed: Yes (Patient is DNR.) Time Spent Managing Pts Care (In Minutes): 55
[2019-07-26 17:49] VITALS: BMI 31.6
[2019-07-26] MEDS ORDERED: ONDANSETRON 4 MG/2 ML VIAL IV PRN (18:12)
[2019-07-26] MEDS ORDERED: RIVAROXABAN 10 MG TABLET PO SCH (18:30)
[2019-07-26] MEDS: RIVAROXABAN 20 MG TABLET PO SCH (18:54)
[2019-07-26 21:22] LABS: CKMB Creatine Kinase MB 3.5 ng/mL (0.3-3.6); Creatine Phosphokinase 151 U/L (39-308); Troponin I < 0.02 ng/mL (0.0-0.045)
[2019-07-26] MEDS: ATORVASTATIN 40 MG TAB PO SCH (21:27)
[2019-07-27] MEDS: ACETAMINOPHEN 500 MG TAB PO PRN ×2 (03:13→22:25)
[2019-07-27 05:34] LABS: Absolute Lymphocytes (CBC) 0.4 K/uL (0.7-4.9); Basophils % 0.3 % (0-1.3); Hematocrit 32.8 % (39.6-49.0); Lymphocytes % 4.1 % (15.3-44.8); MPV 9.3 fL (7.6-11.3); RBC Red Blood Cell Count 3.52 M/uL (4.33-5.43)
[2019-07-27 05:59] LABS: BUN Blood Urea Nitrogen 17 mg/dL (7-18); Bicarbonate 29 mmol/L (21-32); CKMB Creatine Kinase MB 2.2 ng/mL (0.3-3.6); Creatine Phosphokinase 104 U/L (39-308); Glucose Level 113 mg/dL (74-106); HDL Cholesterol 21 mg/dL (40-60); LDL Cholesterol, Calculated 48 (<130); Magnesium 2.1 mg/dL (1.8-2.4); Potassium 3.4 mmol/L (3.5-5.1); Sodium Level 140 mmol/L (136-145); Troponin I < 0.02 ng/mL (0.0-0.045)
[2019-07-27 07:58] LABS: Anisocytosis 1+; Blood Morphology Comment NOTED (NOT SEEN); Platelet Estimate ADEQ
[2019-07-27] MEDS: FUROSEMIDE 20 MG TABLET PO SCH (08:58)
[2019-07-27] MEDS: PANTOPRAZOLE 40MG TABLET PO SCH (08:58)
[2019-07-27] MEDS ORDERED: POTASSIUM CL SA 10 MEQ TAB PO ONE (09:00)
--- NOTE | 2019-07-27 09:42 | P.PN ---
Subjective Date of Service: 07/27/19 Primary Care Provider: Dr. Solorio; Cardiology-Dr. Carney Chief Complaint: Generalized weakness Subjective: No new changes Not verbalizing much. Review of Systems is unable to be obtained Physical Examination - Vital Signs Temperature: 97.7 F Blood Pressure: 127/69 Pulse: 100 Respirations: 16 Pulse Ox (%): 97 - Physical Exam General: In no apparent distress HEENT: Atraumatic, PERRLA, EOMI Neck: Supple, JVD not distended Respiratory: Clear to auscultation bilaterally, Normal air movement Cardiovascular: Normal S1 S2, Irregular heart rate/rhythm Gastrointestinal: Normal bowel sounds, No tenderness, Other (Colostomy in place. ) Musculoskeletal: No tenderness Integumentary: Pressure ulcer, Other (Bilateral LE lymphedema/ skin changes) Neurological: Normal speech, Normal tone, Normal affect Lymphatics: No axilla or inguinal lymphadenopathy - Studies Laboratory Data (last 24 hrs) 07/26/19 14:02: Sodium 136, Potassium 3.7, BUN 18, Creatinine 1.23, Glucose 180 H, Magnesium 2.2, Total Bilirubin 0.8, AST 96 H, ALT 67, Alkaline Phosphatase 186 H, Lipase 62 L 07/26/19 14:00: PT 14.6 H, INR 1.25 07/26/19 14:00: WBC 10.6, Hgb 11.6 L, Hct 35.2 L, Plt Count 243 Microbiology Data (last 24 hrs): 07/26/19 13:50 Blood - Blood Anaerobic Blood Culture - Final 07/26/19 13:00 Nasopharnyx Influenza Type A Antigen Screen - Final 07/26/19 13:00 Nasopharnyx Influenza Type B Antigen Screen - Final Medications List Reviewed: Yes Assessment And Plan Discharge Plan: Senior Living Physician Review Additional Text: Weakness-multifactorial. UTI with Afib with RVR- treat underlying etiology -PT/OT appropriately -will likely need SNF #UTI- UA not convincing;however urine culture with > 100K GNR, await final report. -follow blood culture. -IV antibiotics pending final report. #AFib with RVR on chronic anti coagulation therapy: -continue to monitor telemetry and cardiac enzymes. -echocardiogram & cardiology for further recommendation. -not on rate control meds -continue with anti coagulation therapy-Xarelto. Acute on chronic diastolic CHF: -continue with Lasix. -Fluid strictions, Strict I&O, daily weight. Hypertension: hold lisinopril. BP is stable. Hyperlipidemia: Continue simvastatin Peripheral vascular disease: This has been evaluated in the past. As mentioned by she has not been about a follow up with cardiology. Cardiology consulted to further evaluate. Patient currently on Xarelto. Multiple sacral decubitus ulcers with ulcer to the lower extremities: Will have wound care evaluate multiple wounds. Patient will require evaluation and treatment. History of colon cancer now with colostomy: Will continue with colostomy care. Dispo- SNF
--- NOTE | 2019-07-27 10:56 | ECHO ---
HEIGHT: 6 ft 4 in WEIGHT: 260 lb 6.4 oz DATE OF STUDY: 07/27/[address]: Casey Uribe DO 2-DIMENSIONAL: YES M.MODE: YES DOPPLER: YES COLOR FLOW: YES TDS: PORTABLE: DEFINITY: BUBBLE STUDY: DIAGNOSIS: ATRIAL FIBRILLATION/ CONGESTIVE HEART FAILURE CARDIAC HISTORY: CATHERIZATION: NO SURGERY: NO PROSTHETIC VALVE: NO PACEMAKER: NO MEASUREMENTS (cm) DIASTOLIC (NORMALS) SYSTOLIC (NORMALS) IVSd 1.2 (0.6-1.2) LA Diam 4.8 (1.9-4.0) LVEF 61% LVIDd 4.6 (3.5-5.7) LVIDs 3.1 (2.0-3.5) %FS 33% LVPWd 1.1 (0.6-1.2) Ao Diam 2.9 (2.0-3.7) 2 DIMENSIONAL ASSESSMENT: RIGHT ATRIUM: NORMAL LEFT ATRIUM: DILATED RIGHT VENTRICLE: NORMAL LEFT VENTRICLE: LEFT VENTRICULAR HYEPRTROPHY TRICUSPID VALVE: NORMAL MITRAL VALVE: NORMAL PULMONIC VALVE: NORMAL AORTIC VALVE: SCLEROSIS PERICARDIAL EFFUSION: NONE AORTIC ROOT: NORMAL LEFT VENTRICULAR WALL MOTION: NORMAL DOPPLER/COLOR FLOW: MILD TRICUSPID REGURGITATION. NORMAL RIGHT VENTRICULAR SYSTOLIC PRESSURE. NO AORTIC STENOSIS/ AORTIC REGURGITATION. COMMENTS: NORMAL LEFT VENTRICULAR EJECTION FRACTION. DILATED LEFT ATRIUM. LEFT VENTRICULAR HYPERTROPHY. AORTIC SCLEROSIS WITH NO AORTIC STENOSIS/ AORTIC REGURGITATION. MILD TRICUSPID REGURGITATION. TECHNOLOGIST: NORIS MCGRATH
[2019-07-27] MEDS: CEFTRIAXONE/SWI 1gm 1 GM/10 ML SYR IV SCH (11:05)
--- NOTE | 2019-07-27 12:41 | CON ---
Identification: 73-year-old man Reason For Consult: Atrial fibrillation. History Of Present Illness: Mr. Fernandez has a history of AFib at least since 2018. His home medicat ions are not listed, but I know his home medications include Xarelto and carvedilol. Other medicatio ns are oxybutynin, simvastatin, methenamine hippurate, Lasix, hydrocodone, acetaminophen. He has a h istory of colon cancer, history of hypertension, dyslipidemia. He has a colostomy. He has fairly pr ofound dementia and is an official do not resuscitate status. He has a decubitus ulcer on the sacrum . Physical Examination: GENERAL: 6 feet 4 inches, 260 pounds, sleepy. He can be awakened, but his conversation is basically nonresponsive. He says wait for his to get there to explain things. She was not present durin g the exam. Heart: Irregularly irregular. The heart rate is nicely controlled. It is in the lower 90s. Blood pressure 120/78, temperature 97.5. Abdomen: Soft. Extremities: Edematous. He has numerous wounds on his legs, sacral decubital wounds. Impression: Patient's atrial fibrillation is well controlled. Rate control on anticoagulation is al l we need to do and that is being done well now. ANNY/DAVID Voice ID: [id number] Report ID: [id number]
[2019-07-27] MEDS: RIVAROXABAN 20 MG TABLET PO SCH (16:37)
[2019-07-27] MEDS ORDERED: RIVAROXABAN 20 MG TABLET PO SCH (17:00)
--- NOTE | 2019-07-27 18:52 | RAD REPORT ---
EXAM DESCRIPTION: MRI - Sacrum/Coccyx Wo Cont - 07/27/2019 6:42 pm CLINICAL HISTORY: r/o osteo Pain, swelling, possible osteomyelitis. COMPARISON: No comparisons FINDINGS: Moderate diminished T1 signal and elevated T2 signal is seen involving multi coccygeal lev els as well as the inferior aspect of the sacrum compatible with moderate osteomyelitis. A small amou nt of fluid is seen along the anterior margin of coccyx measuring 6 mm thickness. 5 mm thick small ob long fluid collection is present along the posterior margin of the sacrococcygeal junction. Soft tiss ue ulceration is seen along the posterior soft tissues extending to the level of the inferior coccyge al segment. The sacral ala are intact. Both sacroiliac joints are symmetric. IMPRESSION: Moderate inferior sacrum and coccygeal osteomyelitis is present. Mild fluid is seen in t he inferior coccyx.
[2019-07-27] MEDS: ATORVASTATIN 40 MG TAB PO SCH (22:24)
[2019-07-27] MEDS: JUVEN PACKET PO SCH (22:29)
[2019-07-28 04:18] LABS: Absolute Lymphocytes (CBC) 0.7 K/uL (0.7-4.9); Basophils % 0.4 % (0-1.3); Hematocrit 34.1 % (39.6-49.0); Lymphocytes % 7.3 % (15.3-44.8); RBC Red Blood Cell Count 3.65 M/uL (4.33-5.43)
[2019-07-28 04:30] LABS: Magnesium 2.2 mg/dL (1.8-2.4); Potassium 3.8 mmol/L (3.5-5.1)
[2019-07-28] MEDS: PANTOPRAZOLE 40MG TABLET PO SCH (08:00)
[2019-07-28] MEDS ORDERED: POTASSIUM CL SA 10 MEQ TAB PO ONE (09:00)
[2019-07-28] MEDS: CEFTRIAXONE/SWI 1gm 1 GM/10 ML SYR IV SCH (09:58)
[2019-07-28] MEDS: FUROSEMIDE 20 MG TABLET PO SCH (09:59)
[2019-07-28] MEDS: JUVEN PACKET PO SCH ×2 (09:59→21:00)
[2019-07-28] MEDS: VANCOMYCIN 2 GM in NA CHLORIDE 0.9% 500 ML IVPB SCH ×2 (10:00→21:21)
[2019-07-28] MEDS: ACETIC ACID 0.25% IRRIG IRR SCH (10:00)
--- NOTE | 2019-07-28 14:11 | P.PN ---
Subjective Date of Service: 07/28/19 Primary Care Provider: Dr. Solorio; Cardiology-Dr. Carney Chief Complaint: Generalized weakness More awake. Still not verbalizing much. Review of Systems is unable to be obtained Physical Examination - Vital Signs Temperature: 97.1 F Blood Pressure: 153/85 Pulse: 87 Respirations: 22 Pulse Ox (%): 97 - Physical Exam General: Alert, In no apparent distress HEENT: Atraumatic, EOMI Neck: Supple, JVD not distended Respiratory: Clear to auscultation bilaterally, Normal air movement Cardiovascular: Regular rate/rhythm, Normal S1 S2 Gastrointestinal: Normal bowel sounds, No tenderness, Other (ostomy) Musculoskeletal: Swelling Integumentary: Pressure ulcer (multiple stages.), Other (bilateral LE skin changes) Neurological: Normal speech, Abnormal affect - Studies Microbiology Data (last 24 hrs): 07/26/19 13:10 Clean Catch Urine [place] Count - Final >100,000 CFU/ML. 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 Patient with multiple pressure ulcers -Initiate vancomycin. monitor VS. -consult ID. #Weakness-multifactorial. UTI with Afib with RVR- treat underlying etiology -PT/OT appropriately -will likely need SNF #UTI- due to Ecoli -continue IV abx. #AFib with RVR on chronic anti coagulation therapy: -continue to monitor telemetry and cardiac enzymes. -echocardiogram & cardiology for further recommendation. -not on rate control meds -continue with anti coagulation therapy-Xarelto. Acute on chronic diastolic CHF: -continue with Lasix. -Fluid restrictions, Strict I&O, daily weight. Hypertension: hold lisinopril. BP is stable. Hyperlipidemia: Continue simvastatin Peripheral vascular disease: This has been evaluated in the past. As mentioned by she has not been about a follow up with cardiology. Cardiology consulted to further evaluate. Patient currently on Xarelto. Multiple sacral decubitus ulcers with ulcer to the lower extremities: wound care evaluate multiple wounds. Maximize nutrition History of colon cancer now with colostomy: Will continue with colostomy care. Dispo- SNF
[2019-07-28] MEDS: carvediloL 6.25 MG TAB PO SCH ×2 (14:52→21:00)
[2019-07-28] MEDS: MEDIHONEY 44 ML TOPICAL TUBE TOP SCH (14:57)
[2019-07-28] MEDS: RIVAROXABAN 20 MG TABLET PO SCH (16:23)
--- NOTE | 2019-07-28 18:04 | PN ---
Date of Progress Note: 07/28/2019 Mr. Fernandez had been admitted for atrial fibrillation, which is chronic. He is on beta-blockers and Xarelto at home. He is a do not resuscitate. Medication was continued including the Xarelto and bet a katie. Today's rate is in the 90s. He is still in atrial fibrillation. Had no cardiac symptoms . Echocardiogram showed aortic sclerosis with a normal ejection fraction. We will continue his pres ent regimen. We will sign off his case. He can go home whenever it is okay with Dr. Dee. JESSA/DAVID Voice ID: [id number] Report ID: [id number]
--- NOTE | 2019-07-28 20:28 | CON ---
History Of Present Illness: This is a 73-year-old male with significant history of atrial fibrillati on on anticoagulation therapy, peripheral vascular disease. Patient was brought in via ambulance. A s the patient is not able to give much history, most of the history was obtained through medical emilia rds and by the bedside. Patient has left ischial unstageable wound and sacral has stage III wou nd and left ankle stage III wound, not in any acute distress. Past Medical History: Includes hyperlipidemia, hypertension, morbid obesity, colon cancer with colos sonam, peripheral vascular disease, urinary retention, chronic lymphedema, and colostomy placement. Social History: Nonsmoker, nondrinker. Family History: Noncontributory. Medications: Rocephin and vancomycin. See MAR for other medications. Allergies: MORPHINE. Review of Systems: Ten-point review was performed. Physical Examination: General: This is a 73-year-old male, lying in bed, not in any acute cardiopulmonary distress. Vital Signs: Temperature 97, pulse 87, respirations 22, blood pressure 153/75. HEENT: Unremarkable. Neck: Supple. Lungs: Basal crackles. Heart: S1, S2. Regular. Abdomen: Soft. Bowel sounds present. Extremities: 3+ nonpitting edema. Left ischial wound noted with necrotic tissue and eschar formatio n. Sacral wound also noted and left ankle wound noted. Laboratory Data: Shows WBC 8.9, hemoglobin 11.2, platelets 242. Sodium 139, potassium 3.8, chloride 106, bicarb 27, BUN 18, creatinine 0.89, glucose 108. Microdata: Showing MRSA from the sacral wound and Escherichia coli in the urine. MRI of sacral cocc yx area shows moderate inferior sacral coccyx osteomyelitis. Assessment And Plan: Patient with sacral coccyx osteomyelitis and unstageable wound to the left isch ial and left ankle wound in a patient with morbid obesity, bed-bound, and multiple medical problems. Continue vancomycin for methicillin-resistant Staphylococcus aureus infection of the wound and osteo myelitis and Rocephin for urinary tract infection secondary to Escherichia coli with total course of 6 weeks. Consider transferring patient to long-term acute care to [facility]. Case discusse d with the . We will follow the patient as needed. NF/MODL Voice ID: [id number] Report ID: [id number]
[2019-07-28] MEDS: ATORVASTATIN 40 MG TAB PO SCH (21:21)
[2019-07-29] MEDS: HYDROCODONE/APAP 10/325 TAB PO PRN ×3 (03:55→22:44)
[2019-07-29 04:20] LABS: Absolute Lymphocytes (CBC) 0.6 K/uL (0.7-4.9); Basophils % 0.5 % (0-1.3); Hematocrit 34.4 % (39.6-49.0); MPV 9.4 fL (7.6-11.3); RBC Red Blood Cell Count 3.75 M/uL (4.33-5.43)
[2019-07-29 04:31] LABS: Magnesium 2.1 mg/dL (1.8-2.4); Potassium 3.9 mmol/L (3.5-5.1)
[2019-07-29] MEDS ORDERED: POTASSIUM CL SA 10 MEQ TAB PO ONE (04:37)
[2019-07-29] MEDS: VANCOMYCIN 2 GM in NA CHLORIDE 0.9% 500 ML IVPB SCH ×2 (10:13→22:00)
[2019-07-29] MEDS: FUROSEMIDE 20 MG TABLET PO SCH (10:14)
[2019-07-29] MEDS: CEFTRIAXONE/SWI 1gm 1 GM/10 ML SYR IV SCH (10:14)
[2019-07-29] MEDS: carvediloL 6.25 MG TAB PO SCH ×2 (10:14→21:00)
[2019-07-29] MEDS: PANTOPRAZOLE 40MG TABLET PO SCH (10:14)
[2019-07-29] MEDS: JUVEN PACKET PO SCH ×2 (10:15→21:00)
[2019-07-29] MEDS: ACETIC ACID 0.25% IRRIG IRR SCH (10:22)
[2019-07-29] MEDS: MEDIHONEY 44 ML TOPICAL TUBE TOP SCH (10:23)
--- NOTE | 2019-07-29 12:56 | P.PN ---
Subjective Date of Service: 07/29/19 Primary Care Provider: Dr. Solorio; Cardiology-Dr. Carney Chief Complaint: Generalized weakness More awake. wants to sit at bedside. No new complaints. Review of Systems is unable to be obtained (Confused) Physical Examination - Vital Signs Temperature: 97.8 F Blood Pressure: 99/54 Pulse: 89 Respirations: 18 Pulse Ox (%): 96 - Physical Exam General: In no apparent distress, Confused HEENT: Atraumatic, PERRLA, EOMI Neck: Supple, JVD not distended Respiratory: Clear to auscultation bilaterally, Normal air movement Cardiovascular: Regular rate/rhythm, Normal S1 S2 Gastrointestinal: Normal bowel sounds, No tenderness Musculoskeletal: Swelling Integumentary: Pressure ulcer, Other (Multiple ulcers.) Neurological: Other (Unable to evaluate) Lymphatics: No axilla or inguinal lymphadenopathy - Studies Microbiology Data (last 24 hrs): 07/26/19 13:10 Clean Catch Urine [place] Count - Final >100,000 CFU/ML. 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 GS consulted. Patient with multiple pressure ulcers -Initiated vancomycin. monitor VS. -consult ID. #Weakness-multifactorial. UTI with Afib with RVR- treat underlying etiology -PT/OT appropriately #UTI- due to Ecoli -continue IV abx. #AFib with RVR on chronic anti coagulation therapy: -continue to monitor telemetry and cardiac enzymes. -echocardiogram & cardiology, recommendation appreciated. -not on rate control meds -continue with anti coagulation therapy-Xarelto. Acute on chronic diastolic CHF: -continue with po Lasix. -Fluid restrictions, Strict I&O, daily weight. Hypertension: hold lisinopril. BP is stable. Hyperlipidemia: Continue simvastatin Peripheral vascular disease: This has been evaluated in the past. As mentioned by she has not been able to follow up with cardiology. Patient currently on Xarelto. Multiple sacral decubitus ulcers with ulcer to the lower extremities: wound care evaluating multiple wounds. Maximize nutrition History of colon cancer now with colostomy: Will continue with colostomy care. Dispo- LTAC. picc line ordered for 6 weeks IV abx.
[2019-07-29] MEDS: COLLAGENASE 30 GM OINTMENT TOP SCH (14:06)
[2019-07-29] MEDS: RIVAROXABAN 20 MG TABLET PO SCH (16:14)
--- NOTE | 2019-07-29 16:39 | PN ---
Subjective: Patient is lying in bed. by the bedside, not in any acute distress. Objective: Vital Signs: Temperature 97.4, pulse 73, respirations 18, blood pressure 121/70. Lungs: Basal crackles. Heart: S1, S2. Regular. Abdomen: Soft, nontender. Bowel sounds present. Extremities: 2+ edema with stasis changes noted on the legs. Also noted ulceration to the right leg , which did not see last time. Patient has left lateral ankle wound, left ischial wound with eschar tissue and slight foul smell. Sacral wound also noted with no slough or necrotic tissue at this poin t. Laboratory Data: Shows WBC 9.4, hemoglobin 11.4, platelets are 255. Chemistry is 137 sodium, potass ium 3.9, chloride 106, bicarb 26, BUN 16, creatinine 0.9, glucose is 114. Current Medications: Include Rocephin and vancomycin. Assessment And Plan: Patient has multiple wounds, most concerning his left ischial wound, which woul d like to have cleaned also and osteomyelitis of the left ischial area. We will continue IV antibiot ic for 4 to 6 weeks. Family was explained about his condition and requested to transfer the patient to long-term acute care for more aggressive wound care and possible hyperbaric. Family has agreed to it and we will continue current treatment for now and follow the patient as needed. Continue Mediho dilia to the wound on the sacral and ischial area and Santyl to the ankle and right leg stasis ulcer. NF/MODL Voice ID: [id number] Report ID: [id number]
[2019-07-29] MEDS: ATORVASTATIN 40 MG TAB PO SCH (21:00)
[2019-07-30] MEDS ORDERED: COLLAGENASE 30 GM OINTMENT TOP SCH ×2 (09:00)
[2019-07-30] MEDS: FUROSEMIDE 20 MG TABLET PO SCH (09:25)
[2019-07-30] MEDS: carvediloL 6.25 MG TAB PO SCH ×2 (09:25→21:53)
[2019-07-30] MEDS: PANTOPRAZOLE 40MG TABLET PO SCH (09:25)
[2019-07-30] MEDS: JUVEN PACKET PO SCH ×2 (09:26→21:54)
[2019-07-30] MEDS: CEFTRIAXONE/SWI 1gm 1 GM/10 ML SYR IV SCH (09:26)
[2019-07-30] MEDS: ACETIC ACID 0.25% IRRIG IRR SCH (09:38)
[2019-07-30] MEDS: COLLAGENASE 30 GM OINTMENT TOP SCH (09:38)
[2019-07-30] MEDS: MEDIHONEY 44 ML TOPICAL TUBE TOP SCH (09:39)
[2019-07-30] MEDS: VANCOMYCIN 2 GM in NA CHLORIDE 0.9% 500 ML IVPB SCH (09:41)
--- NOTE | 2019-07-30 14:26 | P.PN ---
Subjective Date of Service: 07/30/19 Primary Care Provider: Dr. Solorio; Cardiology-Dr. Carney Chief Complaint: Generalized weakness Subjective: No new changes Review of Systems is unable to be obtained Physical Examination - Vital Signs Temperature: 97.5 F Blood Pressure: 123/65 Pulse: 79 Respirations: 20 Pulse Ox (%): 97 - Physical Exam General: Alert, In no apparent distress, Oriented x3, Obese HEENT: Atraumatic, Normocephalic Neck: 2+ carotid pulse no bruit, JVD not distended Respiratory: Clear to auscultation bilaterally, Normal air movement Cardiovascular: Normal pulses, Regular rate/rhythm, Normal S1 S2 Gastrointestinal: Normal bowel sounds, Soft and benign, Non-distended Musculoskeletal: Clubbing, Swelling, Other (dsg over b/l ankles /heels) - Studies Laboratory Last Values WBC 9.4 K/uL (4.3-10.9) 07/29/19 03:59 RBC 3.75 M/uL (4.33-5.43) L 07/29/19 03:59 Hgb 11.4 g/dL (13.6-17.9) L 07/29/19 03:59 Hct 34.4 % (39.6-49.0) L 07/29/19 03:59 MCV 91.8 fL (80-100) 07/29/19 03:59 MCH 30.4 pg (27.0-35.0) 07/29/19 03:59 MCHC 33.2 g/dL (32.0-36.0) 07/29/19 03:59 RDW 16.2 % (12.1-15.2) H 07/29/19 03:59 Plt Count 255 K/uL (152-406) 07/29/19 03:59 MPV 9.4 fL (7.6-11.3) 07/29/19 03:59 Neutrophils % 84.6 % (41.7-73.7) H 07/29/19 03:59 Lymphocytes % 6.0 % (15.3-44.8) L 07/29/19 03:59 Monocytes % 7.8 % (3.3-12.3) 07/29/19 03:59 Eosinophils % 1.1 % (0-4.4) 07/29/19 03:59 Basophils % 0.5 % (0-1.3) 07/29/19 03:59 Absolute Neutrophils 7.9 K/uL (1.8-8.0) 07/29/19 03:59 Segmented Neutrophils 88 % (40-80) H 07/27/19 05:03 Absolute Lymphocytes 0.6 K/uL (0.7-4.9) L 07/29/19 03:59 Lymphocytes 6 % (15-42) L 07/27/19 05:03 Monocytes 5 % (0-10) 07/27/19 05:03 Absolute Monocytes 0.7 K/uL (0.1-1.3) 07/29/19 03:59 Eosinophils 1 % (0-3) 07/27/19 05:03 Absolute Eosinophils 0.1 K/uL (0-0.5) 07/29/19 03:59 Absolute Basophils 0.0 K/uL (0-0.5) 07/29/19 03:59 Anisocytosis 1+ 07/27/19 05:03 Morphology Comment Noted (NOT SEEN) 07/27/19 05:03 PT 14.6 SECONDS (9.5-12.5) H 07/26/19 14:00 INR 1.25 07/26/19 14:00 Sodium 139 mmol/L (136-145) 07/30/19 05:22 Potassium 4.0 mmol/L (3.5-5.1) 07/30/19 05:22 Chloride 108 mmol/L (98-107) H 07/30/19 05:22 Carbon Dioxide 25 mmol/L (21-32) 07/30/19 05:22 BUN 19 mg/dL (7-18) H 07/30/19 05:22 Creatinine 0.88 mg/dL (0.55-1.3) 07/30/19 05:22 Estimated GFR 84 mL/min (=/>90) L 07/30/19 05:22 Glucose 98 mg/dL (74-106) 07/30/19 05:22 Calcium 8.6 mg/dL (8.5-10.1) 07/30/19 05:22 Magnesium 2.1 mg/dL (1.8-2.4) 07/29/19 03:59 Total Bilirubin 0.8 mg/dL (0.2-1.0) 07/26/19 14:02 Direct Bilirubin 0.3 mg/dL (0-0.2) H 07/26/19 14:02 AST 96 U/L (15-37) H 07/26/19 14:02 ALT 67 U/L (12-78) 07/26/19 14:02 Alkaline Phosphatase 186 U/L (45-117) H 07/26/19 14:02 Creatine Kinase 104 U/L (39-308) 07/27/19 05:03 CK-MB (CK-2) 2.2 ng/mL (0.3-3.6) 07/27/19 05:03 Rapid Troponin I < 0.02 ng/mL (0.0-0.045) 07/26/19 14:02 Troponin I < 0.02 ng/mL (0.0-0.045) 07/27/19 05:03 NT-Pro-B Natriuret Pep 1699 pg/mL (<450) H 07/26/19 14:02 Serum Total Protein 7.9 g/dL (6.4-8.2) 07/26/19 14:02 Albumin 2.3 g/dL (3.4-5.0) L 07/26/19 14:02 Globulin 5.6 g/dL (2.3-3.5) H 07/26/19 14:02 Albumin/Globulin Ratio 0.4 (1.1-1.8) L 07/26/19 14:02 Triglycerides 117 mg/dL (<150) 07/27/19 05:03 Cholesterol 92 mg/dL (<200) 07/27/19 05:03 LDL Cholesterol, Calc 48 (<130) 07/27/19 05:03 HDL Cholesterol 21 mg/dL (40-60) L 07/27/19 05:03 Cholesterol/HDL Ratio 4.38 07/27/19 05:03 Lipase 62 U/L (73-393) L 07/26/19 14:02 TSH 0.979 uIU/mL (0.360-3.740) 07/26/19 18:23 Free T4 1.31 ng/dL (0.76-1.46) 07/26/19 18:23 Urine pH 6.5 (5.0-7.0) 07/26/19 13:20 Ur Specific [place] 1.015 (1.005-1.030) 07/26/19 13:20 Urine Ketones Negative (NEG) 07/26/19 13:20 Urine Blood 1+ (NEG) H 07/26/19 13:20 Urine Nitrite Negative (NEG) 07/26/19 13:20 Ur Leukocyte Esterase Negative (NEG) 07/26/19 13:20 Urine Glucose Negative (NEG) 07/26/19 13:20 Urine Total Protein Negative (NEG) 07/26/19 13:20 Vancomycin Trough 23.1 ug/mL (5.0-20.0) H 07/29/19 21:01 Medications List Reviewed: Yes Assessment & Plan Discharge Plan: LTAC Plan to discharge in: 48 Hours Physician Review: Patient Assessed, Agree with Above Assessment and Plan Physician Review Additional Text: # 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 UTI with Afib with RVR- c/w PT/OT appropriately #E coli UTI- continue abx. #AFib with RVR on chronic anti coagulation therapy: -stable -continue with anti coagulation therapy-Xarelto. Acute on chronic diastolic CHF: -improving , c/w lasix /Fluid restrictions Hypertension: hold lisinopril. BP is stable. Hyperlipidemia: Continue simvastatin Peripheral vascular disease: This has been evaluated in the past. currently on Xarelto. Multiple sacral decubitus ulcers with ulcer to the lower extremities: wound care following , c/w nutirtion supplements History of colon cancer now with colostomy: c/w colostomy care. Dispo- LTAC. for 6 weeks IV abx.
[2019-07-30] MEDS: levoFLOXacin 500 MG TAB PO SCH (16:24)
[2019-07-30] MEDS: RIVAROXABAN 20 MG TABLET PO SCH (16:24)
[2019-07-30] MEDS: HYDROCODONE/APAP 10/325 TAB PO PRN (21:53)
[2019-07-30] MEDS: ATORVASTATIN 40 MG TAB PO SCH (21:53)
[2019-07-31] MEDS: HYDROCODONE/APAP 10/325 TAB PO PRN ×3 (03:02→20:48)
[2019-07-31] MEDS: VANCOMYCIN 2 GM in NA CHLORIDE 0.9% 500 ML IVPB SCH ×2 (03:03→22:23)
[2019-07-31 05:52] LABS: Absolute Lymphocytes (CBC) 0.7 K/uL (0.7-4.9); Basophils % 0.2 % (0-1.3); Hematocrit 31.4 % (39.6-49.0); Lymphocytes % 7.8 % (15.3-44.8); MPV 9.3 fL (7.6-11.3); RBC Red Blood Cell Count 3.39 M/uL (4.33-5.43)
[2019-07-31 05:55] LABS: Albumin 1.9 g/dL (3.4-5.0); Bilirubin Total 0.5 mg/dL (0.2-1.0); Potassium 3.8 mmol/L (3.5-5.1); Protein, Total 6.8 g/dL (6.4-8.2)
[2019-07-31] MEDS: levoFLOXacin 500 MG TAB PO SCH (08:26)
[2019-07-31] MEDS: carvediloL 6.25 MG TAB PO SCH ×2 (08:27→20:48)
[2019-07-31] MEDS: FUROSEMIDE 20 MG TABLET PO SCH (08:27)
[2019-07-31] MEDS: PANTOPRAZOLE 40MG TABLET PO SCH (08:27)
[2019-07-31] MEDS: MEDIHONEY 44 ML TOPICAL TUBE TOP SCH (08:30)
[2019-07-31] MEDS: COLLAGENASE 30 GM OINTMENT TOP SCH (08:30)
[2019-07-31] MEDS: JUVEN PACKET PO SCH ×2 (08:30→20:49)
[2019-07-31] MEDS: ACETIC ACID 0.25% IRRIG IRR SCH (08:31)
[2019-07-31] MEDS ORDERED: POTASSIUM CL SA 10 MEQ TAB PO ONE (09:00)
--- NOTE | 2019-07-31 13:20 | P.PN ---
Subjective Date of Service: 07/31/19 Primary Care Provider: Dr. Solorio; Cardiology-Dr. Carney Chief Complaint: Generalized weakness Subjective: No new changes, C/O voiced (persistent back pain with positioning on sacral decub cushion) Review of Systems 10-point ROS is otherwise unremarkable Physical Examination - Vital Signs Temperature: 97.1 F Blood Pressure: 125/61 Pulse: 62 Respirations: 14 Pulse Ox (%): 95 - Physical Exam General: Alert, Oriented x3 HEENT: Atraumatic, Normocephalic Neck: Supple, 2+ carotid pulse no bruit Respiratory: Clear to auscultation bilaterally, Normal air movement Cardiovascular: Normal pulses, Regular rate/rhythm, Normal S1 S2 Gastrointestinal: Normal bowel sounds, Soft and benign, Non-distended Integumentary: Skin breakdown, Pressure ulcer Neurological: Normal speech, Abnormal strength - Studies Laboratory Last Values WBC 8.4 K/uL (4.3-10.9) 07/31/19 05:05 RBC 3.39 M/uL (4.33-5.43) L 07/31/19 05:05 Hgb 10.6 g/dL (13.6-17.9) L 07/31/19 05:05 Hct 31.4 % (39.6-49.0) L 07/31/19 05:05 MCV 92.7 fL (80-100) 07/31/19 05:05 MCH 31.3 pg (27.0-35.0) 07/31/19 05:05 MCHC 33.8 g/dL (32.0-36.0) 07/31/19 05:05 RDW 15.9 % (12.1-15.2) H 07/31/19 05:05 Plt Count 256 K/uL (152-406) 07/31/19 05:05 MPV 9.3 fL (7.6-11.3) 07/31/19 05:05 Neutrophils % 82.6 % (41.7-73.7) H 07/31/19 05:05 Lymphocytes % 7.8 % (15.3-44.8) L 07/31/19 05:05 Monocytes % 8.3 % (3.3-12.3) 07/31/19 05:05 Eosinophils % 1.1 % (0-4.4) 07/31/19 05:05 Basophils % 0.2 % (0-1.3) 07/31/19 05:05 Absolute Neutrophils 7.0 K/uL (1.8-8.0) 07/31/19 05:05 Segmented Neutrophils 88 % (40-80) H 07/27/19 05:03 Absolute Lymphocytes 0.7 K/uL (0.7-4.9) 07/31/19 05:05 Lymphocytes 6 % (15-42) L 07/27/19 05:03 Monocytes 5 % (0-10) 07/27/19 05:03 Absolute Monocytes 0.7 K/uL (0.1-1.3) 07/31/19 05:05 Eosinophils 1 % (0-3) 07/27/19 05:03 Absolute Eosinophils 0.1 K/uL (0-0.5) 07/31/19 05:05 Absolute Basophils 0.0 K/uL (0-0.5) 07/31/19 05:05 Anisocytosis 1+ 07/27/19 05:03 Morphology Comment Noted (NOT SEEN) 07/27/19 05:03 PT 14.6 SECONDS (9.5-12.5) H 07/26/19 14:00 INR 1.25 07/26/19 14:00 Sodium 138 mmol/L (136-145) 07/31/19 05:05 Potassium 3.8 mmol/L (3.5-5.1) 07/31/19 05:05 Chloride 106 mmol/L (98-107) 07/31/19 05:05 Carbon Dioxide 28 mmol/L (21-32) 07/31/19 05:05 BUN 19 mg/dL (7-18) H 07/31/19 05:05 Creatinine 0.84 mg/dL (0.55-1.3) 07/31/19 05:05 Estimated GFR 89 mL/min (=/>90) L 07/31/19 05:05 Glucose 116 mg/dL (74-106) H 07/31/19 05:05 Calcium 8.3 mg/dL (8.5-10.1) L 07/31/19 05:05 Magnesium 2.1 mg/dL (1.8-2.4) 07/29/19 03:59 Total Bilirubin 0.5 mg/dL (0.2-1.0) 07/31/19 05:05 Direct Bilirubin 0.3 mg/dL (0-0.2) H 07/26/19 14:02 AST 38 U/L (15-37) H 07/31/19 05:05 ALT 36 U/L (12-78) 07/31/19 05:05 Alkaline Phosphatase 172 U/L (45-117) H 07/31/19 05:05 Creatine Kinase 104 U/L (39-308) 07/27/19 05:03 CK-MB (CK-2) 2.2 ng/mL (0.3-3.6) 07/27/19 05:03 Rapid Troponin I < 0.02 ng/mL (0.0-0.045) 07/26/19 14:02 Troponin I < 0.02 ng/mL (0.0-0.045) 07/27/19 05:03 NT-Pro-B Natriuret Pep 1699 pg/mL (<450) H 07/26/19 14:02 Serum Total Protein 6.8 g/dL (6.4-8.2) 07/31/19 05:05 Albumin 1.9 g/dL (3.4-5.0) L 07/31/19 05:05 Globulin 4.9 g/dL (2.3-3.5) H 07/31/19 05:05 Albumin/Globulin Ratio 0.4 (1.1-1.8) L 07/31/19 05:05 Triglycerides 117 mg/dL (<150) 07/27/19 05:03 Cholesterol 92 mg/dL (<200) 07/27/19 05:03 LDL Cholesterol, Calc 48 (<130) 07/27/19 05:03 HDL Cholesterol 21 mg/dL (40-60) L 07/27/19 05:03 Cholesterol/HDL Ratio 4.38 07/27/19 05:03 Lipase 62 U/L (73-393) L 07/26/19 14:02 TSH 0.979 uIU/mL (0.360-3.740) 07/26/19 18:23 Free T4 1.31 ng/dL (0.76-1.46) 07/26/19 18:23 Urine pH 6.5 (5.0-7.0) 07/26/19 13:20 Ur Specific [place] 1.015 (1.005-1.030) 07/26/19 13:20 Urine Ketones Negative (NEG) 07/26/19 13:20 Urine Blood 1+ (NEG) H 07/26/19 13:20 Urine Nitrite Negative (NEG) 07/26/19 13:20 Ur Leukocyte Esterase Negative (NEG) 07/26/19 13:20 Urine Glucose Negative (NEG) 07/26/19 13:20 Urine Total Protein Negative (NEG) 07/26/19 13:20 Vancomycin Trough 23.1 ug/mL (5.0-20.0) H 07/29/19 21:01 Medications List Reviewed: Yes Assessment & Plan Discharge Plan: [facility] Plan to discharge in: 24 Hours Physician Review: Patient Assessed, Agree with Above Assessment and Plan Physician Review Additional Text: No new changes , will adjust pain regime # 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 UTI with Afib with RVR- c/w PT/OT appropriately - follow plan for LTAC [facility] in am #E coli UTI- continue abx. #AFib with RVR on chronic anti coagulation therapy: -stable -continue with anti coagulation therapy-Xarelto. Acute on chronic diastolic CHF: -improving , c/w lasix /Fluid restrictions Hypertension: hold lisinopril. BP is stable. Hyperlipidemia: Continue simvastatin Peripheral vascular disease: This has been evaluated in the past. currently on Xarelto. Multiple sacral decubitus ulcers with ulcer to the lower extremities: wound care following , c/w nutirtion supplements History of colon cancer now with colostomy: c/w colostomy care. Dispo- LTAC. for 6 weeks IV abx.
[2019-07-31] MEDS ORDERED: HYDROCODONE/APAP 5/325 MG TAB PO PRN (13:21)
[2019-07-31] MEDS: RIVAROXABAN 20 MG TABLET PO SCH (16:06)
[2019-07-31] MEDS: ATORVASTATIN 40 MG TAB PO SCH (20:48)
[2019-08-01] MEDS: HYDROCODONE/APAP 10/325 TAB PO PRN ×2 (05:33→21:18)
[2019-08-01 06:06] LABS: Absolute Lymphocytes (CBC) 0.6 K/uL (0.7-4.9); Basophils % 0.2 % (0-1.3); Hematocrit 32.2 % (39.6-49.0); Lymphocytes % 6.8 % (15.3-44.8); MPV 9.1 fL (7.6-11.3); RBC Red Blood Cell Count 3.47 M/uL (4.33-5.43)
[2019-08-01 06:18] LABS: BUN Blood Urea Nitrogen 18 mg/dL (7-18); Bicarbonate 27 mmol/L (21-32); Glucose Level 112 mg/dL (74-106); Potassium 4.1 mmol/L (3.5-5.1); Sodium Level 140 mmol/L (136-145)
[2019-08-01] MEDS: PANTOPRAZOLE 40MG TABLET PO SCH (08:00)
[2019-08-01] MEDS: levoFLOXacin 500 MG TAB PO SCH (08:51)
[2019-08-01] MEDS: carvediloL 6.25 MG TAB PO SCH ×2 (08:52→21:19)
[2019-08-01] MEDS: FUROSEMIDE 20 MG TABLET PO SCH (08:52)
[2019-08-01] MEDS: JUVEN PACKET PO SCH ×2 (08:53→21:20)
[2019-08-01] MEDS: MEDIHONEY 44 ML TOPICAL TUBE TOP SCH (08:56)
[2019-08-01] MEDS: ACETIC ACID 0.25% IRRIG IRR SCH (08:56)
[2019-08-01] MEDS: COLLAGENASE 30 GM OINTMENT TOP SCH (08:56)
--- NOTE | 2019-08-01 12:56 | P.PN ---
Subjective Date of Service: 08/01/19 Primary Care Provider: Dr. Soloroi; Cardiology-Dr. Carney Chief Complaint: Generalized weakness Subjective: Improving Physical Examination - Vital Signs Temperature: 96.7 F Blood Pressure: 100/68 Pulse: 83 Respirations: 16 Pulse Ox (%): 96 - Physical Exam General: Alert HEENT: Atraumatic Neck: Supple Respiratory: Clear to auscultation bilaterally, Normal air movement Cardiovascular: Irregular heart rate/rhythm (AFib rate controlled) Gastrointestinal: Normal bowel sounds, No tenderness, No masses, No rebound Neurological: Normal speech, Normal strength at 5/5 x4 extr, Normal tone, Normal affect - Studies Microbiology Data (last 24 hrs): 07/26/19 13:50 Blood - Blood Aerobic Blood Culture - Final No growth in 5 days. 07/26/19 13:50 Blood - Blood Anaerobic Blood Culture - Final 07/26/19 13:00 Blood - Blood Aerobic Blood Culture - Final No growth in 5 days. 07/26/19 13:00 Blood - Blood Anaerobic Blood Culture - Final No growth in 5 days. Medications List Reviewed: Yes Assessment & Plan Discharge Plan: LTAC Plan to discharge in: 24 Hours Physician Review Additional Text: Impression: Sacral osteomyelitis with MRSA positive AFib with RVR on chronic anti coagulation therapy Weakness secondary to above UTI with urine culture positive for E coli Hypertension Hyperlipidemia PVD Multiple sacral decubitus ulcers to the lower extremity History of colon cancer now with colostomy Plan: Sacral osteomyelitis with MRSA positive: Continue with IV vancomycin. Patient will require long-term IV antibiotic therapy for 6 weeks. Awaiting long-term acute care facility approval. Continue physical therapy. Infectious Disease recommended long-term acute care facility for aggressive wound care as well. AFib with RVR on chronic anti coagulation therapy: Continue with medication and anti coalition therapy Weakness secondary to above: Continue with physical therapy UTI with urine culture positive for E coli: This has been treated. Will recheck urine culture. Levaquin discontinued. Hypertension: Continue to hold lisinopril. Patient on carvedilol Hyperlipidemia: Continue medication PVD: Continue medication Multiple sacral decubitus ulcers to the lower extremity: Continue wound care History of colon cancer now with colostomy: Continue with colostomy care Time Spent Managing Pts Care (In Minutes): 55
--- NOTE | 2019-08-01 13:30 | RAD REPORT ---
EXAM DESCRIPTION: Chest Single View CLINICAL HISTORY: S/P PICC line insertion. COMPARISON: None. FINDINGS: Normal heart size without pulmonary edema. There is a patchy opacity at the left lung base . No large pleural effusions or pneumothorax. No acute bony findings are seen. There is a right upper extremity PICC with the tip in the SVC. IMPRESSION: Right upper extremity PICC with the tip in the SVC. Left lung base opacity may represent infection or edema. Electronically signed by: Bennett Daniels MD 07/29/2019 11:02 PM CREDIT RISK SPECIALIST Due to temporary technical issues with the PACS/Fluency reporting system, reports are being signed by the in house radiologist as a courtesy to ensure prompt reporting. The interpreting radiologist is f ully responsible for the content of the report.
[2019-08-01] MEDS: VANCOMYCIN 2 GM in NA CHLORIDE 0.9% 500 ML IVPB SCH (15:00)
[2019-08-01] MEDS: RIVAROXABAN 20 MG TABLET PO SCH (16:02)
--- NOTE | 2019-08-01 19:45 | PN ---
Subjective: Patient is more alert and awake. Objective: Vital Signs: Temperature 96.7, pulse 83, respirations 16, blood pressure 100/68, by the bedside. Lungs: Clear to auscultation. Heart: S1, S2. Regular. Abdomen: Soft, nontender. Bowel sounds present. EXTREMITIES: Trace edema. Laboratory Data: Shows WBC 8.5, hemoglobin 10.8, platelets are 269. Chemistry shows sodium 140, pot assium 4.1, chloride 108, bicarb 27, BUN 18, creatinine 0.8, glucose is 112. Microdata: Growing MRSA from sacral wound and right lower extremity Staph aureus and urine has E col i. Assessment And Plan: Left ischial unstageable wound, sacral stage III with Methicillin-resistant Sta phylococcus aureus infection, Staph aureus of the right lower extremity, and urinary tract infection Escherichia coli. Patient is currently being treated with vancomycin IV and collagenase. Continue a ntibiotic and wound care. We will follow the patient as needed. NF/MODL Voice ID: [id number] Report ID: [id number]
[2019-08-01] MEDS: ATORVASTATIN 40 MG TAB PO SCH (21:19)
[2019-08-02] MEDS: HYDROCODONE/APAP 10/325 TAB PO PRN (06:03)
[2019-08-02 06:55] LABS: Magnesium 2.2 mg/dL (1.8-2.4); Potassium 3.9 mmol/L (3.5-5.1)
[2019-08-02] MEDS ORDERED: POTASSIUM CL SA 10 MEQ TAB PO ONE (07:06)
[2019-08-02] MEDS: PANTOPRAZOLE 40MG TABLET PO SCH (08:00)
--- NOTE | 2019-08-02 08:43 | P.PN ---
Subjective Date of Service: 08/02/19 Primary Care Provider: Dr. Solorio; Cardiology-Dr. Carney Chief Complaint: Generalized weakness Subjective: Doing well Physical Examination - Vital Signs Temperature: 97.7 F Blood Pressure: 136/69 Pulse: 93 Respirations: 19 Pulse Ox (%): 96 - Physical Exam General: Alert, In no apparent distress, Cooperative HEENT: Atraumatic Neck: Supple Respiratory: Clear to auscultation bilaterally, Normal air movement Cardiovascular: Irregular heart rate/rhythm (a fib rate controlled.) Gastrointestinal: Normal bowel sounds, No ascites, No tenderness, No masses, No rebound Musculoskeletal: No erythema, No tenderness, No warmth Integumentary: No tenderness/swelling, No erythema, No warmth, No cyanosis Neurological: Normal speech, Normal strength at 5/5 x4 extr, Normal tone - Studies Medications List Reviewed: Yes Assessment & Plan Discharge Plan: Other (SNF) Plan to discharge in: 24 Hours Physician Review Additional Text: Impression: Sacral osteomyelitis, left ischial unstageable wound, sacral stage III with MRSA positive, and right lower extremity wound positive for Staph aureus AFib with RVR on chronic anti coagulation therapy Weakness secondary to above UTI with urine culture positive for E coli Hypertension Hyperlipidemia PVD Multiple sacral decubitus ulcers to the lower extremity History of colon cancer now with colostomy Plan: Sacral osteomyelitis, left ischial unstageable wound, sacral stage III with MRSA positive, and right lower extremity wound positive for Staph aureus: Continue with IV vancomycin and wound care. Awaiting approval for long-term acute care facility placement for continued IV antibiotic therapy for 6 weeks and wound care. This was recommended by infectious disease. Anticipate discharge today once long-term acute care facility approved. If the patient remains here tomorrow, I will turn the service over to the hospitalist team. I will go over the plan of care with him. AFib with RVR on chronic anti coagulation therapy: Continue with medication and anti coagulation therapy Weakness secondary to above: Continue with physical therapy UTI with urine culture positive for E coli: This has been treated. Levaquin has been discontinued. Repeat urine culture obtained. Hypertension: Continue to hold lisinopril. Patient on carvedilol. Pressure stable at this time Hyperlipidemia: Continue medication PVD: Continue medication Multiple sacral decubitus ulcers to the lower extremity: Continue wound care History of colon cancer now with colostomy: Continue with colostomy care Time Spent Managing Pts Care (In Minutes): 55
[2019-08-02] MEDS: carvediloL 6.25 MG TAB PO SCH ×2 (09:03→19:57)
[2019-08-02] MEDS: FUROSEMIDE 20 MG TABLET PO SCH (09:03)
[2019-08-02] MEDS: MEDIHONEY 44 ML TOPICAL TUBE TOP SCH (09:04)
[2019-08-02] MEDS: COLLAGENASE 30 GM OINTMENT TOP SCH (09:05)
[2019-08-02] MEDS: ACETIC ACID 0.25% IRRIG IRR SCH (09:05)
[2019-08-02] MEDS: JUVEN PACKET PO SCH ×2 (09:06→19:58)
[2019-08-02] MEDS: VANCOMYCIN 2 GM in NA CHLORIDE 0.9% 500 ML IVPB SCH (09:28)
[2019-08-02] MEDS ORDERED: VANCOMYCIN 2 GM in NA CHLORIDE 0.9% 500 ML IVPB SCH (15:00)
[2019-08-02] MEDS: RIVAROXABAN 20 MG TABLET PO SCH (17:01)
[2019-08-02] MEDS: ATORVASTATIN 40 MG TAB PO SCH (19:57)
[2019-08-02] MEDS: ACETAMINOPHEN 500 MG TAB PO PRN (20:04)
[2019-08-03] MEDS: ACETAMINOPHEN 500 MG TAB PO PRN (05:59)
[2019-08-03 06:44] LABS: BUN Blood Urea Nitrogen 16 mg/dL (7-18); Bicarbonate 28 mmol/L (21-32); Glucose Level 98 mg/dL (74-106); Sodium Level 140 mmol/L (136-145)
[2019-08-03] MEDS: PANTOPRAZOLE 40MG TABLET PO SCH (08:58)
[2019-08-03] MEDS: FUROSEMIDE 20 MG TABLET PO SCH (08:58)
[2019-08-03] MEDS: JUVEN PACKET PO SCH (08:59)
[2019-08-03] MEDS: carvediloL 6.25 MG TAB PO SCH (08:59)
[2019-08-03] MEDS: ACETIC ACID 0.25% IRRIG IRR SCH (09:00)
[2019-08-03] MEDS: MEDIHONEY 44 ML TOPICAL TUBE TOP SCH (09:00)
[2019-08-03] MEDS: COLLAGENASE 30 GM OINTMENT TOP SCH (09:01)
--- NOTE | 2019-08-03 11:37 | P.DS ---
Admission Date: 07/26/19 Discharge Date: 08/03/19 Primary Care Provider: Dr. Solorio; Cardiology-Dr. Carney [facility] Discharge Condition: FAIR Reason for Admission: Generalized weakness Consultations: wound care team - Problems (1) FARHAD (acute kidney injury) Current Visit: No Status: Acute (2) History of rectal cancer Current Visit: No Status: Acute (3) Hyperlipidemia Current Visit: No Status: Acute (4) Hypertension Current Visit: No Status: Acute Qualifiers: Hypertension type: essential hypertension Qualified Code(s): I10 - Essential (primary) hypertension (5) Non-healing surgical wound Current Visit: No Status: Acute (6) UTI (urinary tract infection) Onset Date: 08/29/15 Current Visit: No Status: Acute Qualifiers: Urinary tract infection type: acute cystitis (7) Weakness generalized Onset Date: 08/29/15 Current Visit: No Status: Acute Brief History of Present Illness: History of Present Illness: 73-year-old male with history of atrial fibrillation on chronic anti coagulation therapy, PVD, history of colon cancer now with colostomy. Patient was brought in by EMS. Most information came from the nurses and . Patient is a poor historian. has reported decreased weakness over the past several days. It is been difficult for her to have him move around. Patient primarily uses a wheelchair at home. Patient denied any significant chest pain, shortness of breath. Some edema to the lower extremity noted. Patient presented to the ER for further evaluation. Patient was found to have AFib with RVR with a rate around 120. Patient appeared disheveled. In the ER he was found to have multiple unstageable sacral decubitus ulcers. He also had poor skin care to the lower extremities. On lab white count 10.6, hemoglobin 11.6. Sodium 136, potassium 3.7, BUN of 15 , creatinine 1.23 with a GFR 57. Glucose 180. Chest x-ray showed mild pulmonary edema. CT head unremarkable. Troponin unremarkable. BNP 1699. Patient was admitted for further evaluation. When I saw the patient ER, was at bedside. Patient is a poor historian. Patient appears disheveled and not well kept. Patient with urinary incontinence and urinary retention. Patient self caths. Randhawa catheter was placed in the emergency room. reports that he has been getting home health and physical therapy. This is not been helpful. reports that she is not able to take care of him in his condition. Hospital Course: Patient with history of HTN, PVD, colon cancer with indwelling colostomy admitted for AFib with RVR UTI as well as confusion. Patient mental status significantly improved with antibiotics. He was noted with multiple heel, sacral and ischial decubitus ulcers with wound culture growing MRSA. He was started on IV vancomycin. He is being followed by wound care with daily wound dressing. Recommendation for 6 weeks of antibiotics after positive sacral osteomyelitis per ID . He will be transferred to a long-term care facility for continued IV antibiotics. Of note, patient did have transient acute renal failure which improved. He has his previous well controlled now and he will continue on anticoagulation. Final Discharge Diagnosis: Sacral osteomyelitis, left ischial unstageable wound, sacral stage III with MRSA positive, and right lower extremity wound positive for Staph aureus AFib with RVR on chronic anti coagulation therapy Weakness secondary to above UTI with urine culture positive for E coli Hypertension Hyperlipidemia PVD Multiple sacral decubitus ulcers to the lower extremity History of colon cancer now with colostomy Vital Signs/Physical Exam: Temp Pulse Resp BP Pulse Ox 97.2 F 83 20 135/73 98 08/03/19 08:00 08/03/19 08:59 08/03/19 08:00 08/03/19 08:59 08/03/19 08:00 General: Alert, In no apparent distress, Oriented x3 HEENT: Atraumatic, Normocephalic, PERRLA Neck: 2+ carotid pulse no bruit, JVD not distended Respiratory: Clear to auscultation bilaterally, Normal air movement Cardiovascular: Regular rate/rhythm, Normal S1 S2 Gastrointestinal: Normal bowel sounds, Soft and benign, Non-distended, Other ( colostomy insitu ) Musculoskeletal: Other (b/l heel dsg , sacral dsg insitu ) Neurological: Normal speech, Sensation intact, Cranial nerves 3-12 intact Laboratory Data at Discharge: WBC 8.5 K/uL (4.3-10.9) 08/01/19 05:40 Hgb 10.8 g/dL (13.6-17.9) L 08/01/19 05:40 Hct 32.2 % (39.6-49.0) L 08/01/19 05:40 Plt Count 269 K/uL (152-406) 08/01/19 05:40 PT 14.6 SECONDS (9.5-12.5) H 07/26/19 14:00 INR 1.25 07/26/19 14:00 Sodium 140 mmol/L (136-145) 08/03/19 05:45 Potassium 4.0 mmol/L (3.5-5.1) 08/03/19 05:45 BUN 16 mg/dL (7-18) 08/03/19 05:45 Creatinine 0.81 mg/dL (0.55-1.3) 08/03/19 05:45 Glucose 98 mg/dL (74-106) 08/03/19 05:45 Magnesium 2.2 mg/dL (1.8-2.4) 08/02/19 06:15 Total Bilirubin 0.5 mg/dL (0.2-1.0) 07/31/19 05:05 AST 38 U/L (15-37) H 07/31/19 05:05 ALT 36 U/L (12-78) 07/31/19 05:05 Alkaline Phosphatase 172 U/L (45-117) H 07/31/19 05:05 Troponin I < 0.02 ng/mL (0.0-0.045) 07/27/19 05:03 Triglycerides 117 mg/dL (<150) 07/27/19 05:03 Cholesterol 92 mg/dL (<200) 07/27/19 05:03 HDL Cholesterol 21 mg/dL (40-60) L 07/27/19 05:03 Cholesterol/HDL Ratio 4.38 07/27/19 05:03 Lipase 62 U/L (73-393) L 07/26/19 14:02 Home Medications: Simvastatin [Zocor*] 40 mg PO BEDTIME 07/12/14 Hydrocodone Bit/Acetaminophen [Hydrocodon-Acetaminophn 10-325] 10 mg PO Q6H PRN 11/29/14 Methenamine Hippurate [Hiprex] 1 gm PO DAILY 11/29/14 Oxybutynin Chloride [Oxybutynin Chloride ER] 15 mg PO DAILY 11/29/14 Rivaroxaban [Xarelto*] 15 mg PO DAILY 07/27/19 carvediloL [Carvedilol] 6.25 mg PO BID 07/27/19 Collagenase [Santyl Ointment*] 1 appl TOP DAILY tube 08/03/19 Furosemide [Lasix*] 20 mg PO DAILY tab 08/03/19 Medihoney [Medihoney Woundcare Gel*] 1 appl TOP DAILY tube 08/03/19 Vancomycin/0.9 % Sod Chloride [Vanco 1 Gram/250 ml-0.9% NaCl] 1 gm IV DAILY #1 plast..bag 08/03/19 New Medications: Vancomycin/0.9 % Sod Chloride [Vanco 1 Gram/250 ml-0.9% NaCl] 1 gm IV DAILY #1 plast..bag Diet: Regular Activity: frequent turning Physician Review: Patient Assessed, Agree with Above Assessment and Plan Time spent managing pt's care (in minutes): 35
[2019-08-03 12:18] VITALS: BP 135/75; TEMP 97.3
[2019-08-03 12:43] VITALS: O2SAT 97
--- NOTE | 2019-08-03 17:04 | PN ---
Subjective: Patient lying in bed. No new acute event. Chart reviewed. Feels better today. Objective: Vital Signs: Temperature 97, pulse 83, respirations 20, blood pressure 135/73. Lungs: Basal crackles. Heart: S1, S2. Regular. Abdomen: Soft, nontender. Bowel sounds present. Extremities: Wounds noted no new changes. Laboratory Data: WBC 8.5 from day before yesterday, hemoglobin 10.8, platelets 269. Medications: Currently, patient is being treated with IV antibiotic including vancomycin for MRSA. Urine had E coli, which has been treated. Assessment And Plan: Methicillin-resistant Staphylococcus aureus wound infection and urinary tract i nfection secondary to Escherichia coli. Continue antibiotic and wound care. Patient is being transf erred to long-term acute care. We will follow the patient as needed. NF/MODL Voice ID: [id number] Report ID: [id number]
== END 2019-08-03 14:03 | DRG 689 ==
LOC: ER 11:57 → ERHOLD 15:58 → 4TH 17:02
PROVIDERS: ADMIT Family Medicine; ATTEND Family Medicine
PROC: 02HV33Z Insertion of Infusion Device into Superior Vena Cava, Percutaneous Approach (ICD-10-PCS; principal; 2019-07-29)
DX: N30.00 Acute cystitis without hematuria (principal); L89.153 Pressure ulcer of sacral region, stage 3; I50.33 Acute on chronic diastolic (congestive) heart failure; M86.8X8 Other osteomyelitis, other site; N17.9 Acute kidney failure, unspecified; I48.20 Chronic atrial fibrillation, unspecified; I48.91 Unspecified atrial fibrillation; B96.20 Unspecified Escherichia coli [E. coli] as the cause of diseases classified elsewhere; B95.62 Methicillin resistant Staphylococcus aureus infection as the cause of diseases classified elsewhere; I73.9 Peripheral vascular disease, unspecified; L89.609 Pressure ulcer of unspecified heel, unspecified stage; I11.0 Hypertensive heart disease with heart failure; Z93.3 Colostomy status; Z85.038 Personal history of other malignant neoplasm of large intestine; Z79.01 Long term (current) use of anticoagulants; R53.1 Weakness; E78.5 Hyperlipidemia, unspecified; E66.01 Morbid (severe) obesity due to excess calories; Z68.30 Body mass index [BMI] 30.0-30.9, adult
CPT/HCPCS: 36415; 70450; 71045; 72195; 80048; 80053; 80061; 80076; 80202; 81003; 82550; 82553; 83690; 83735; 83880; 84132; 84439; 84443; 84484; 85025; 85610; 87040; 87070; 87075; 87077; 87086; 87088; 87186; 87205; 87804; 93005; 93306; 96361; 96365; 96375; 97110; 97112; 97161; 97165; 97530; 99251; 99285; J0696; J1160; J1940; J2543; J3590; J7030; J7040